=== PATIENT | female | born 1935 | race Caucasian/White ===

== ENCOUNTER 2016-10-18 19:23 | Emergency (ER) | payer MEDICARE ==
[2016-10-18 19:59] VITALS: BP 156/91
--- NOTE | 2016-10-18 19:59 | EDM.PDOC ---
ED HPI Trauma - General Chief Complaint: Upper Extremity Injury/Pain Stated Complaint: fall, left shoulder, left thigh pain Source: Reports: Patient - History of Present Illness INITIAL COMMENTS - FREE TEXT/NARRATIVE: patient slipped and fell on ice this afternoon landing on her left side. since then she has has severe posterior shoulder pain with movement. denies any other acute complaints. denies history of injury to her left shoulder. she took ibuprofen and ASA today with no relief. Occurred When: this afternoon Method of Injury: fall Severity: severe (with movement) Pain/Injury Location: Reports: upper extremity, left Consciousness: Reports: no loss of consciousness Associated Symptoms: Reports: no other symptoms Allergies/ADRs: Allergies No Known Allergies Allergy (Verified 10/18/16 19:36) Home Medications: Ambulatory Orders Fenofibrate [Fenofibrate] 160 mg PO DAILY 10/18/16 [Confirmed 10/18/16] Simvastatin [Simvastatin] 20 mg PO DAILY 10/18/16 [Confirmed 10/18/16] Review of Systems - Review of Systems Review Of Systems: ROS reveals no pertinent complaints other than HPI. Trauma Exam - Physical Exam Exam: See Below Exam Limited By: No limitations General Appearance: Reports: alert, WD/WN, no apparent distress Respiratory Exam: Reports: no respiratory distress, lungs clear Extremities: Reports: pain with movement (to posterior left shoulder, unable to abduct or rotate. ), tenderness (to posterior shoulder) Skin: Reports: Normal color, Warm/dry Course - Vital Signs Last Recorded V/S: Last Vital Signs Temp 35.8 C 10/18/16 19:25 Pulse 84 10/18/16 19:25 Resp 16 10/18/16 19:25 BP 156/91 H 10/18/16 19:25 Pulse Ox 93 L 10/18/16 19:25 - Orders/Labs/Meds Orders: Active Orders 24 hr Category Date Time Status Shoulder Comp Lt [CR] Stat Exams 10/18/16 19:49 Taken Ketorolac [Toradol] Med 10/18/16 20:45 Once 60 mg IM ONETIME ONE - Radiology Interpretation Free Text/Narrative:: shoulder x ray negative. Departure - Departure Time of Disposition: 21:00 Disposition: Home, Self-Care 01 Condition: good Clinical Impression: Sprain of shoulder Referrals: Cherelle Arzate DO [Primary Care Provider] - Forms: ED Department Discharge - Problem List & Annotations (1) Sprain of shoulder SNOMED Code(s): 7426807 Code(s): S43.409A - UNSP SPRAIN OF UNSPECIFIED SHOULDER JOINT, INIT ENCNTR Status: Acute Priority: Medium Current Visit: Yes Qualifiers: Encounter type: initial encounter - My Orders Last 24 Hours: My Active Orders 10/18/16 19:49 Shoulder Comp Lt [CR] Stat 10/18/16 20:45 Ketorolac [Toradol] 60 mg IM ONETIME ONE - Assessment/Plan Last 24 Hours: My Active Orders 10/18/16 19:49 Shoulder Comp Lt [CR] Stat 10/18/16 20:45 Ketorolac [Toradol] 60 mg IM ONETIME ONE Plan: ibuprofen 600mg TID for 3 days. Tramadol at bedtime as needed for pain. wear sling as needed. see primary provider if no improvement on Friday.
[2016-10-18] MEDS ORDERED: Ketorolac 60 MG/2 ML SDV IM ONE (20:45)
== END 2016-10-18 20:59 | disposition home or self-care (01) ==
LOC: VM.ED 19:23
DX: S43.402A Unspecified sprain of left shoulder joint, initial encounter (principal); W00.0XXA Fall on same level due to ice and snow, initial encounter
CPT/HCPCS: 73030; 96372; 99283; J1885

== ENCOUNTER 2023-05-02 12:20 | Inpatient (IN) | payer MEDICARE, OTHER ==
[2023-05-02] MEDS ORDERED: Meclizine 25 MG Tab PO PRN (15:17)
[2023-05-02] MEDS ORDERED: Menthol 10%/Methyl Salicylate 15% 85 GM Tube TOP PRN (15:17)
[2023-05-02] MEDS ORDERED: Naloxone 0.4 MG/ML SDV IM PRN (15:17)
[2023-05-02] MEDS ORDERED: Sodium Chloride 0.9% 10 ML Syringe FLUSH PRN (15:17)
[2023-05-02] MEDS ORDERED: ALOE VERA TOP PRN (15:17)
[2023-05-02] MEDS ORDERED: Non-Formulary Medication 1 Each (Cefazolin [Ancef] 2 GM/50 ML Bag) IV SCH (15:30)
[2023-05-02] MEDS ORDERED: Calcium Carbonate 750 MG Tab.Chew PO PRN (16:40)
[2023-05-02] MEDS ORDERED: oxyCODONE 5 MG Tab PO PRN (16:44)
[2023-05-02] MEDS: ceFAZolin 2 GM Vial IVPUSH SCH (17:46)
[2023-05-02] MEDS: Heparin Sodium 100 Units/ML 3 ML Syringe FLUSH SCH (17:47)
[2023-05-02] MEDS: Sodium Chloride 0.9% 10 ML Syringe FLUSH SCH (17:47)
[2023-05-02] MEDS: Potassium Chloride 10 MEQ Tab.ER PO SCH (17:50)
[2023-05-02] MEDS ORDERED: ceFAZolin 2 GM in Sodium Chloride 0.9% 100 ML IV SCH (18:00)
[2023-05-02] MEDS: Acetaminophen 325 MG Tab PO SCH (18:09)
[2023-05-02] MEDS: Rifampin 150 MG Cap PO SCH (21:58)
[2023-05-02] MEDS: Simvastatin 20 MG Tab PO SCH (21:58)
[2023-05-02] MEDS: Calcium Citrate/Vitamin D3 315 MG-250 Unit Tab PO SCH (21:59)
[2023-05-02] MEDS: Sennosides/Docusate Sodium 50-8.6 MG Tab PO SCH (21:59)
[2023-05-02] MEDS: Tamsulosin 0.4 MG Cap.ER PO SCH (21:59)
[2023-05-02] MEDS: Aspirin 81 MG Tab.EC PO SCH (21:59)
[2023-05-02] MEDS: Miconazole 2% Top Powder 45 GM Container TOP SCH (22:55)
[2023-05-03] MEDS: Acetaminophen 325 MG Tab PO SCH ×5 (01:23→22:45)
[2023-05-03] MEDS: ceFAZolin 2 GM Vial IVPUSH SCH ×3 (01:25→17:03)
[2023-05-03] MEDS: Sodium Chloride 0.9% 10 ML Syringe FLUSH SCH ×3 (01:25→17:03)
[2023-05-03] MEDS: Heparin Sodium 100 Units/ML 3 ML Syringe FLUSH SCH ×3 (01:25→17:11)
[2023-05-03] MEDS: Sodium Chloride 0.9% 10 ML Syringe FLUSH PRN ×6 (01:26→21:15)
[2023-05-03] MEDS: Omeprazole 20 MG Cap.CR PO SCH (06:44)
[2023-05-03] MEDS: hydrALAZINE 25 MG Tab PO PRN ×2 (06:59→22:33)
[2023-05-03 07:55] LABS: BASOPHILS PERCENT AUTO 0.6 % (0.2-1.2); EOSINOPHILS ABSOLUTE AUTO 0.1 x10^3/uL (0.0-0.5); EOSINOPHILS PERCENT AUTO 1.7 % (0.0-4.0); HEMATOCRIT 30.4 % (33.0-47.0); HEMOGLOBIN 10.1 g/dL (12.0-16.0); IMMATURE GRAN ABSOLUTE AUTO 0.04 x10^3/uL (0.00-0.07); LYMPHOCYTES ABSOLUTE AUTO 0.7 x10^3/uL (1.0-4.8); LYMPHOCYTES PERCENT AUTO 10.4 % (25.0-50.0); MEAN CORPUSCULAR HEMOGLOBIN 29.6 pg (26.0-32.0); MEAN CORPUSCULAR HGB CONC 33.2 g/dL (32.0-36.0); MEAN CORPUSCULAR VOLUME 89.1 fL (78.0-93.0); MONOCYTES ABSOLUTE AUTO 0.5 x10^3/uL (0.0-0.8); MONOCYTES PERCENT AUTO 7.8 % (2.0-11.0); NEUTROPHILS ABSOLUTE AUTO 5.1 x10^3/uL (1.8-7.7); NEUTROPHILS PERCENT AUTO 78.9 % (50.0-80.0); PLATELET COUNT,PLT 154 x10^3/uL (130-400); RED BLOOD CELL COUNT 3.41 x10^6/uL (4.00-5.50); WHITE BLOOD CELL COUNT,WBC 6.4 x10^3/uL (4.0-10.0)
[2023-05-03 08:06] LABS: CALCIUM 7.7 mg/dL (8.5-10.1); CREATININE 0.7 mg/dL (0.55-1.02); EST CRCL DRUG DOSING (CG) 40.67 mL/min; POTASSIUM,K 3.4 mmol/L (3.5-5.1)
[2023-05-03 08:09] LABS: ANION GAP 6.4 mmol/L (5-15)
[2023-05-03 08:22] LABS: MAGNESIUM 1.7 mg/dL (1.8-2.4)
[2023-05-03] MEDS: Rifampin 150 MG Cap PO SCH ×2 (08:45→22:14)
[2023-05-03] MEDS: Aspirin 81 MG Tab.EC PO SCH ×2 (08:46→22:14)
[2023-05-03] MEDS: Furosemide 20 MG Tab PO SCH (08:46)
[2023-05-03] MEDS: amLODIPine 10 MG Tab PO SCH (08:46)
[2023-05-03] MEDS: Fluconazole 100 MG Tab PO SCH (08:47)
[2023-05-03] MEDS: Potassium Chloride 10 MEQ Tab.ER PO SCH (08:47)
[2023-05-03] MEDS ORDERED: Ascorbic Acid 500 MG Tab PO SCH (09:00)
[2023-05-03] MEDS ORDERED: Cyanocobalamin (Vitamin B12) 250 MCG Tab PO SCH (09:00)
[2023-05-03] MEDS ORDERED: Vitamin B Complex Tab PO SCH (09:00)
[2023-05-03] MEDS ORDERED: Fish Oil/Omega-3 Fatty Acids 1 Gm Cap PO SCH (09:00)
[2023-05-03] MEDS ORDERED: Multivitamin Tab PO SCH (09:00)
[2023-05-03] MEDS ORDERED: Cholecalciferol (Vitamin D3) 25 MCG Tab PO SCH (09:00)
[2023-05-03] MEDS: Fenofibrate,Micronized 134 MG Cap PO SCH (09:22)
[2023-05-03] MEDS: Calcium Citrate/Vitamin D3 315 MG-250 Unit Tab PO SCH (09:22)
[2023-05-03] MEDS: Magnesium Oxide 400 MG Tab PO SCH (09:23)
[2023-05-03] MEDS: Heparin Sodium 100 Units/ML 3 ML Syringe FLUSH PRN ×2 (09:45→21:15)
[2023-05-03] MEDS: Polyethylene Glycol 3350 Powder 17 GM Packet PO SCH (10:12)
[2023-05-03] MEDS: [UNRECOGNIZED DRUG - OTHER] PO SCH (11:27)
[2023-05-03] MEDS: POTASSIUM GLUCONATE PO SCH (11:27)
[2023-05-03] MEDS: Miconazole 2% Top Powder 45 GM Container TOP SCH ×2 (11:32→22:45)
[2023-05-03] MEDS: Sennosides/Docusate Sodium 50-8.6 MG Tab PO SCH (13:12)
[2023-05-03] MEDS ORDERED: Ondansetron 4 MG/2 ML SDV IVPUSH PRN (15:54)
[2023-05-03] MEDS ORDERED: Magnesium Sulfate/Water 4 GM in Premix Bag 1 BAG IV ONE (16:05)
[2023-05-03] MEDS: Simvastatin 20 MG Tab PO SCH ×2 (22:14→22:45)
[2023-05-03] MEDS: Tamsulosin 0.4 MG Cap.ER PO SCH (22:14)
[2023-05-04] MEDS: Metoclopramide 10 MG/2 ML SDV IVPUSH SCH ×4 (00:07→17:02)
[2023-05-04] MEDS: Sodium Chloride 0.9% 10 ML Syringe FLUSH PRN ×9 (00:15→17:30)
[2023-05-04] MEDS: ceFAZolin 2 GM Vial IVPUSH SCH ×3 (02:10→17:19)
[2023-05-04] MEDS: Heparin Sodium 100 Units/ML 3 ML Syringe FLUSH SCH ×3 (02:11→17:32)
[2023-05-04] MEDS: Sodium Chloride 0.9% 10 ML Syringe FLUSH SCH ×3 (02:11→17:26)
[2023-05-04] MEDS: Acetaminophen 325 MG Tab PO SCH ×4 (02:13→18:39)
[2023-05-04] MEDS: Heparin Sodium 100 Units/ML 3 ML Syringe FLUSH PRN ×3 (06:59→17:12)
[2023-05-04] MEDS: Omeprazole 20 MG Cap.CR PO SCH (06:59)
[2023-05-04 08:11] LABS: BASOPHILS PERCENT AUTO 0.5 % (0.2-1.2); EOSINOPHILS ABSOLUTE AUTO 0.1 x10^3/uL (0.0-0.5); EOSINOPHILS PERCENT AUTO 1.3 % (0.0-4.0); HEMATOCRIT 33.3 % (33.0-47.0); IMMATURE GRAN ABSOLUTE AUTO 0.03 x10^3/uL (0.00-0.07); LYMPHOCYTES ABSOLUTE AUTO 0.7 x10^3/uL (1.0-4.8); LYMPHOCYTES PERCENT AUTO 10.8 % (25.0-50.0); MEAN CORPUSCULAR HEMOGLOBIN 29.5 pg (26.0-32.0); MEAN CORPUSCULAR VOLUME 89.3 fL (78.0-93.0); MONOCYTES ABSOLUTE AUTO 0.5 x10^3/uL (0.0-0.8); MONOCYTES PERCENT AUTO 7.7 % (2.0-11.0); NEUTROPHILS ABSOLUTE AUTO 4.9 x10^3/uL (1.8-7.7); NEUTROPHILS PERCENT AUTO 79.2 % (50.0-80.0); PLATELET COUNT,PLT 182 x10^3/uL (130-400); RED BLOOD CELL COUNT 3.73 x10^6/uL (4.00-5.50); WHITE BLOOD CELL COUNT,WBC 6.1 x10^3/uL (4.0-10.0)
[2023-05-04 08:32] LABS: A/G RATIO 0.52; ALBUMIN 1.6 g/dL (3.4-5.0); BILIRUBIN TOTAL 0.4 mg/dL (0.2-1.0); CALCIUM 7.8 mg/dL (8.5-10.1); CREATININE 0.9 mg/dL (0.55-1.02); EST CRCL DRUG DOSING (CG) 31.63 mL/min; MAGNESIUM 2.1 mg/dL (1.8-2.4); POTASSIUM,K 3.4 mmol/L (3.5-5.1); PROTEIN TOTAL,TP 4.7 g/dL (6.4-8.2)
[2023-05-04 08:33] LABS: ANION GAP 7.4 mmol/L (5-15)
[2023-05-04] MEDS: Fluconazole 100 MG Tab PO SCH (09:24)
[2023-05-04] MEDS: Rifampin 150 MG Cap PO SCH ×2 (09:24→21:39)
[2023-05-04] MEDS: Aspirin 81 MG Tab.EC PO SCH ×2 (10:25→21:39)
[2023-05-04] MEDS: Furosemide 20 MG Tab PO SCH (10:25)
[2023-05-04] MEDS: Miconazole 2% Top Powder 45 GM Container TOP SCH ×2 (10:25→21:40)
[2023-05-04] MEDS: amLODIPine 10 MG Tab PO SCH (10:25)
[2023-05-04] MEDS: Polyethylene Glycol 3350 Powder 17 GM Packet PO SCH (10:25)
[2023-05-04] MEDS: [UNRECOGNIZED DRUG - OTHER] PO SCH (10:29)
[2023-05-04] MEDS: POTASSIUM GLUCONATE PO SCH (10:29)
[2023-05-04] MEDS: Potassium Chloride 10 MEQ Tab.ER PO SCH (10:33)
[2023-05-04] MEDS: Magnesium Oxide 400 MG Tab PO SCH (11:28)
[2023-05-04] MEDS: Potassium Chloride 20 MEQ Tab.ER PO SCH (11:28)
[2023-05-04] MEDS: Fenofibrate,Micronized 134 MG Cap PO SCH (11:28)
[2023-05-04] MEDS: Tamsulosin 0.4 MG Cap.ER PO SCH (21:39)
[2023-05-04] MEDS: Simvastatin 20 MG Tab PO SCH (21:39)
[2023-05-05] MEDS: Metoclopramide 10 MG/2 ML SDV IVPUSH SCH ×2 (00:12→05:37)
[2023-05-05] MEDS: Heparin Sodium 100 Units/ML 3 ML Syringe FLUSH PRN ×2 (00:13→05:37)
[2023-05-05] MEDS: Sodium Chloride 0.9% 10 ML Syringe FLUSH PRN (00:13)
[2023-05-05] MEDS: Acetaminophen 325 MG Tab PO SCH ×4 (00:28→18:14)
[2023-05-05] MEDS: Heparin Sodium 100 Units/ML 3 ML Syringe FLUSH SCH ×3 (01:07→18:14)
[2023-05-05] MEDS: Sodium Chloride 0.9% 10 ML Syringe FLUSH SCH ×3 (01:07→18:14)
[2023-05-05] MEDS: ceFAZolin 2 GM Vial IVPUSH SCH ×3 (01:10→18:14)
[2023-05-05] MEDS ORDERED: Lidocaine 2% Viscous Solution 15 ML UD PO ONE ×2 (05:00→05:15)
[2023-05-05] MEDS ORDERED: Aluminum Hydroxide/Magnesium Hydroxide/Simethicone Susp 30 ML Cup PO ONE (05:30)
[2023-05-05] MEDS: Omeprazole 20 MG Cap.CR PO SCH (06:49)
[2023-05-05 06:59] LABS: BASOPHILS PERCENT AUTO 0.5 % (0.2-1.2); EOSINOPHILS ABSOLUTE AUTO 0.1 x10^3/uL (0.0-0.5); EOSINOPHILS PERCENT AUTO 1.6 % (0.0-4.0); HEMATOCRIT 31.7 % (33.0-47.0); HEMOGLOBIN 10.5 g/dL (12.0-16.0); IMMATURE GRAN ABSOLUTE AUTO 0.04 x10^3/uL (0.00-0.07); LYMPHOCYTES ABSOLUTE AUTO 0.5 x10^3/uL (1.0-4.8); LYMPHOCYTES PERCENT AUTO 8.3 % (25.0-50.0); MEAN CORPUSCULAR HEMOGLOBIN 29.6 pg (26.0-32.0); MEAN CORPUSCULAR HGB CONC 33.1 g/dL (32.0-36.0); MEAN CORPUSCULAR VOLUME 89.3 fL (78.0-93.0); MONOCYTES ABSOLUTE AUTO 0.6 x10^3/uL (0.0-0.8); MONOCYTES PERCENT AUTO 8.8 % (2.0-11.0); NEUTROPHILS PERCENT AUTO 80.2 % (50.0-80.0); PLATELET COUNT,PLT 162 x10^3/uL (130-400); RED BLOOD CELL COUNT 3.55 x10^6/uL (4.00-5.50)
[2023-05-05 07:06] LABS: WHITE BLOOD CELL COUNT,WBC 6.3 x10^3/uL (4.0-10.0)
[2023-05-05 07:17] LABS: C-REACTIVE PROTEIN 4.64 mg/dL (<=0.30); CREATININE 0.7 mg/dL (0.55-1.02); EST CRCL DRUG DOSING (CG) 40.67 mL/min
[2023-05-05] MEDS: Miconazole 2% Top Powder 45 GM Container TOP SCH ×2 (08:46→21:17)
[2023-05-05] MEDS ORDERED: Metoclopramide 10 MG Tab PO PRN (08:55)
[2023-05-05] MEDS: Fenofibrate,Micronized 134 MG Cap PO SCH (10:37)
[2023-05-05] MEDS: Fluconazole 100 MG Tab PO SCH (10:37)
[2023-05-05] MEDS: Potassium Chloride 20 MEQ Tab.ER PO SCH (10:38)
[2023-05-05] MEDS: Aspirin 81 MG Tab.EC PO SCH ×2 (10:38→21:16)
[2023-05-05] MEDS: Rifampin 150 MG Cap PO SCH ×2 (10:38→21:16)
[2023-05-05] MEDS: amLODIPine 10 MG Tab PO SCH (10:39)
[2023-05-05] MEDS: Magnesium Oxide 400 MG Tab PO SCH ×2 (10:39→21:16)
[2023-05-05] MEDS: Furosemide 20 MG Tab PO SCH (10:39)
[2023-05-05] MEDS: Polyethylene Glycol 3350 Powder 17 GM Packet PO SCH (10:39)
[2023-05-05] MEDS: [UNRECOGNIZED DRUG - OTHER] PO SCH (10:40)
[2023-05-05] MEDS: POTASSIUM GLUCONATE PO SCH (10:40)
[2023-05-05] MEDS: Simvastatin 20 MG Tab PO SCH (21:16)
[2023-05-05] MEDS: Tamsulosin 0.4 MG Cap.ER PO SCH (21:16)
[2023-05-06] MEDS: ceFAZolin 2 GM Vial IVPUSH SCH ×3 (01:18→17:59)
[2023-05-06] MEDS: Sodium Chloride 0.9% 10 ML Syringe FLUSH SCH ×3 (01:18→18:01)
[2023-05-06] MEDS: Heparin Sodium 100 Units/ML 3 ML Syringe FLUSH SCH ×3 (01:19→18:00)
[2023-05-06] MEDS: Acetaminophen 325 MG Tab PO SCH ×4 (01:19→18:01)
[2023-05-06] MEDS: Omeprazole 20 MG Cap.CR PO SCH (06:31)
[2023-05-06] MEDS: Miconazole 2% Top Powder 45 GM Container TOP SCH (09:26)
[2023-05-06] MEDS: Rifampin 150 MG Cap PO SCH ×2 (09:31→22:00)
[2023-05-06] MEDS: Aspirin 81 MG Tab.EC PO SCH ×2 (09:31→22:00)
[2023-05-06] MEDS: Fluconazole 100 MG Tab PO SCH (09:31)
[2023-05-06] MEDS: Fenofibrate,Micronized 134 MG Cap PO SCH (09:31)
[2023-05-06] MEDS: Potassium Chloride 20 MEQ Tab.ER PO SCH (09:31)
[2023-05-06] MEDS: amLODIPine 10 MG Tab PO SCH (09:31)
[2023-05-06] MEDS: Magnesium Oxide 400 MG Tab PO SCH ×2 (09:32→22:00)
[2023-05-06] MEDS: Polyethylene Glycol 3350 Powder 17 GM Packet PO SCH (09:32)
[2023-05-06] MEDS: Furosemide 20 MG Tab PO SCH (09:32)
[2023-05-06] MEDS: POTASSIUM GLUCONATE PO SCH (10:02)
[2023-05-06] MEDS: [UNRECOGNIZED DRUG - OTHER] PO SCH (10:02)
[2023-05-06] MEDS: Tamsulosin 0.4 MG Cap.ER PO SCH (22:00)
[2023-05-06] MEDS: Simvastatin 20 MG Tab PO SCH (22:00)
[2023-05-07] MEDS: Sodium Chloride 0.9% 10 ML Syringe FLUSH SCH ×3 (01:38→17:37)
[2023-05-07] MEDS: ceFAZolin 2 GM Vial IVPUSH SCH ×3 (01:39→17:36)
[2023-05-07] MEDS: Acetaminophen 325 MG Tab PO SCH ×3 (01:44→12:45)
[2023-05-07] MEDS: Heparin Sodium 100 Units/ML 3 ML Syringe FLUSH SCH ×3 (01:44→17:37)
[2023-05-07] MEDS: Miconazole 2% Top Powder 45 GM Container TOP SCH ×4 (02:13→20:33)
[2023-05-07] MEDS: Omeprazole 20 MG Cap.CR PO SCH (06:52)
[2023-05-07 06:58] LABS: BASOPHILS PERCENT AUTO 0.9 % (0.2-1.2); EOSINOPHILS ABSOLUTE AUTO 0.1 x10^3/uL (0.0-0.5); IMMATURE GRAN ABSOLUTE AUTO 0.04 x10^3/uL (0.00-0.07); LYMPHOCYTES ABSOLUTE AUTO 0.6 x10^3/uL (1.0-4.8); LYMPHOCYTES PERCENT AUTO 14.3 % (25.0-50.0); MEAN CORPUSCULAR HEMOGLOBIN 30.3 pg (26.0-32.0); MEAN CORPUSCULAR HGB CONC 33.3 g/dL (32.0-36.0); MEAN CORPUSCULAR VOLUME 90.9 fL (78.0-93.0); MONOCYTES ABSOLUTE AUTO 0.4 x10^3/uL (0.0-0.8); MONOCYTES PERCENT AUTO 9.6 % (2.0-11.0); NEUTROPHILS ABSOLUTE AUTO 3.2 x10^3/uL (1.8-7.7); NEUTROPHILS PERCENT AUTO 72.3 % (50.0-80.0); PLATELET COUNT,PLT 121 x10^3/uL (130-400); RED BLOOD CELL COUNT 2.97 x10^6/uL (4.00-5.50); WHITE BLOOD CELL COUNT,WBC 4.5 x10^3/uL (4.0-10.0)
[2023-05-07 07:17] LABS: ANION GAP 5.5 mmol/L (5-15); CALCIUM 7.5 mg/dL (8.5-10.1); CREATININE 0.7 mg/dL (0.55-1.02); EST CRCL DRUG DOSING (CG) 40.67 mL/min; POTASSIUM,K 4.5 mmol/L (3.5-5.1)
[2023-05-07] MEDS: Polyethylene Glycol 3350 Powder 17 GM Packet PO SCH (09:20)
[2023-05-07] MEDS: Aspirin 81 MG Tab.EC PO SCH ×2 (09:22→20:34)
[2023-05-07] MEDS: Fenofibrate,Micronized 134 MG Cap PO SCH (09:22)
[2023-05-07] MEDS: amLODIPine 10 MG Tab PO SCH (09:23)
[2023-05-07] MEDS: Furosemide 20 MG Tab PO SCH (09:23)
[2023-05-07] MEDS: Rifampin 150 MG Cap PO SCH ×2 (09:24→20:33)
[2023-05-07] MEDS: Fluconazole 100 MG Tab PO SCH (09:24)
[2023-05-07] MEDS: Magnesium Oxide 400 MG Tab PO SCH ×2 (09:24→20:34)
[2023-05-07] MEDS: Potassium Chloride 20 MEQ Tab.ER PO SCH (09:24)
[2023-05-07] MEDS: POTASSIUM GLUCONATE PO SCH (09:26)
[2023-05-07] MEDS: [UNRECOGNIZED DRUG - OTHER] PO SCH (09:26)
[2023-05-07] MEDS: Sennosides/Docusate Sodium 50-8.6 MG Tab PO PRN (17:35)
[2023-05-07] MEDS: Simvastatin 20 MG Tab PO SCH (20:34)
[2023-05-07] MEDS: Tamsulosin 0.4 MG Cap.ER PO SCH (20:34)
[2023-05-07] MEDS: Sodium Chloride 0.9% 10 ML Syringe FLUSH PRN ×2 (21:18→21:22)
[2023-05-07] MEDS: Heparin Sodium 100 Units/ML 3 ML Syringe FLUSH PRN (21:55)
[2023-05-08] MEDS: Sodium Chloride 0.9% 10 ML Syringe FLUSH SCH ×5 (01:04→17:51)
[2023-05-08] MEDS: ceFAZolin 2 GM Vial IVPUSH SCH ×3 (01:14→17:50)
[2023-05-08] MEDS: Heparin Sodium 100 Units/ML 3 ML Syringe FLUSH SCH ×3 (01:19→17:50)
[2023-05-08] MEDS: Heparin Sodium 100 Units/ML 3 ML Syringe FLUSH PRN ×4 (01:23→21:14)
[2023-05-08] MEDS: Sodium Chloride 0.9% 10 ML Syringe FLUSH PRN ×3 (06:28→21:10)
[2023-05-08 06:44] LABS: BASOPHILS PERCENT AUTO 0.7 % (0.2-1.2); EOSINOPHILS ABSOLUTE AUTO 0.1 x10^3/uL (0.0-0.5); HEMATOCRIT 27.5 % (33.0-47.0); HEMOGLOBIN 9.1 g/dL (12.0-16.0); IMMATURE GRAN ABSOLUTE AUTO 0.03 x10^3/uL (0.00-0.07); LYMPHOCYTES ABSOLUTE AUTO 0.7 x10^3/uL (1.0-4.8); LYMPHOCYTES PERCENT AUTO 14.9 % (25.0-50.0); MEAN CORPUSCULAR HGB CONC 33.1 g/dL (32.0-36.0); MEAN CORPUSCULAR VOLUME 90.8 fL (78.0-93.0); MONOCYTES ABSOLUTE AUTO 0.4 x10^3/uL (0.0-0.8); MONOCYTES PERCENT AUTO 9.7 % (2.0-11.0); NEUTROPHILS ABSOLUTE AUTO 3.2 x10^3/uL (1.8-7.7); PLATELET COUNT,PLT 141 x10^3/uL (130-400); RED BLOOD CELL COUNT 3.03 x10^6/uL (4.00-5.50); WHITE BLOOD CELL COUNT,WBC 4.4 x10^3/uL (4.0-10.0)
[2023-05-08] MEDS: Omeprazole 20 MG Cap.CR PO SCH (06:45)
[2023-05-08 07:04] LABS: ALBUMIN 1.4 g/dL (3.4-5.0); CALCIUM 7.4 mg/dL (8.5-10.1); CREATININE 0.6 mg/dL (0.55-1.02); EST CRCL DRUG DOSING (CG) 47.45 mL/min; PHOSPHORUS 2.9 mg/dL (2.6-4.7); POTASSIUM,K 4.4 mmol/L (3.5-5.1)
[2023-05-08] MEDS: Polyethylene Glycol 3350 Powder 17 GM Packet PO SCH (09:51)
[2023-05-08] MEDS: Magnesium Oxide 400 MG Tab PO SCH ×2 (09:54→21:06)
[2023-05-08] MEDS: Aspirin 81 MG Tab.EC PO SCH ×2 (09:54→21:07)
[2023-05-08] MEDS: Rifampin 150 MG Cap PO SCH ×2 (09:54→21:06)
[2023-05-08] MEDS: Miconazole 2% Top Powder 45 GM Container TOP SCH ×2 (09:55→21:07)
[2023-05-08] MEDS: Furosemide 20 MG Tab PO SCH (09:55)
[2023-05-08] MEDS: Fenofibrate,Micronized 134 MG Cap PO SCH (09:55)
[2023-05-08] MEDS: amLODIPine 10 MG Tab PO SCH (09:55)
[2023-05-08] MEDS: Potassium Chloride 20 MEQ Tab.ER PO SCH (09:55)
[2023-05-08] MEDS: Tamsulosin 0.4 MG Cap.ER PO SCH (21:07)
[2023-05-08] MEDS: Simvastatin 20 MG Tab PO SCH (21:07)
[2023-05-09] MEDS: Sodium Chloride 0.9% 10 ML Syringe FLUSH SCH ×3 (01:05→18:10)
[2023-05-09] MEDS: ceFAZolin 2 GM Vial IVPUSH SCH ×3 (01:09→18:07)
[2023-05-09] MEDS: Sodium Chloride 0.9% 10 ML Syringe FLUSH PRN ×5 (01:13→22:10)
[2023-05-09] MEDS: Heparin Sodium 100 Units/ML 3 ML Syringe FLUSH PRN ×3 (01:17→22:14)
[2023-05-09] MEDS: Heparin Sodium 100 Units/ML 3 ML Syringe FLUSH SCH ×4 (01:17→18:16)
[2023-05-09] MEDS: Omeprazole 20 MG Cap.CR PO SCH (06:13)
[2023-05-09] MEDS: Rifampin 150 MG Cap PO SCH ×2 (08:17→22:08)
[2023-05-09] MEDS: Aspirin 81 MG Tab.EC PO SCH ×2 (08:17→22:08)
[2023-05-09] MEDS: Polyethylene Glycol 3350 Powder 17 GM Packet PO SCH (08:18)
[2023-05-09] MEDS: Furosemide 20 MG Tab PO SCH (08:18)
[2023-05-09] MEDS: amLODIPine 10 MG Tab PO SCH (08:18)
[2023-05-09] MEDS: Fenofibrate,Micronized 134 MG Cap PO SCH (09:37)
[2023-05-09] MEDS: Potassium Chloride 20 MEQ Tab.ER PO SCH (09:37)
[2023-05-09] MEDS: Miconazole 2% Top Powder 45 GM Container TOP SCH ×2 (09:37→22:08)
[2023-05-09] MEDS: Magnesium Oxide 400 MG Tab PO SCH ×2 (09:37→22:08)
[2023-05-09] MEDS: Simvastatin 20 MG Tab PO SCH (22:08)
[2023-05-10] MEDS: Sodium Chloride 0.9% 10 ML Syringe FLUSH SCH ×3 (01:18→18:39)
[2023-05-10] MEDS: ceFAZolin 2 GM Vial IVPUSH SCH ×3 (01:22→18:36)
[2023-05-10] MEDS: Sodium Chloride 0.9% 10 ML Syringe FLUSH PRN ×4 (01:26→18:43)
[2023-05-10] MEDS: Heparin Sodium 100 Units/ML 3 ML Syringe FLUSH SCH ×3 (01:30→18:37)
[2023-05-10] MEDS: Heparin Sodium 100 Units/ML 3 ML Syringe FLUSH PRN (05:40)
[2023-05-10] MEDS: Omeprazole 20 MG Cap.CR PO SCH (06:00)
[2023-05-10] MEDS: Rifampin 150 MG Cap PO SCH ×2 (08:38→22:20)
[2023-05-10] MEDS: amLODIPine 10 MG Tab PO SCH (08:38)
[2023-05-10] MEDS: Furosemide 20 MG Tab PO SCH (08:38)
[2023-05-10] MEDS: Aspirin 81 MG Tab.EC PO SCH ×2 (08:38→22:21)
[2023-05-10] MEDS: Polyethylene Glycol 3350 Powder 17 GM Packet PO SCH (08:39)
[2023-05-10] MEDS: Miconazole 2% Top Powder 45 GM Container TOP SCH ×2 (08:39→22:21)
[2023-05-10] MEDS: Potassium Chloride 20 MEQ Tab.ER PO SCH (09:49)
[2023-05-10] MEDS: Magnesium Oxide 400 MG Tab PO SCH ×2 (09:49→22:20)
[2023-05-10] MEDS: Fenofibrate,Micronized 134 MG Cap PO SCH (09:49)
[2023-05-10] MEDS: Simvastatin 20 MG Tab PO SCH (22:21)
[2023-05-11] MEDS: Sodium Chloride 0.9% 10 ML Syringe FLUSH PRN ×5 (01:13→17:26)
[2023-05-11] MEDS: Heparin Sodium 100 Units/ML 3 ML Syringe FLUSH PRN ×2 (01:17→17:25)
[2023-05-11] MEDS: Sodium Chloride 0.9% 10 ML Syringe FLUSH SCH ×3 (01:21→17:31)
[2023-05-11] MEDS: ceFAZolin 2 GM Vial IVPUSH SCH ×3 (01:25→17:20)
[2023-05-11] MEDS: Heparin Sodium 100 Units/ML 3 ML Syringe FLUSH SCH ×3 (01:32→17:32)
[2023-05-11] MEDS: Omeprazole 20 MG Cap.CR PO SCH (06:04)
[2023-05-11] MEDS: Rifampin 150 MG Cap PO SCH ×2 (08:21→20:38)
[2023-05-11] MEDS: amLODIPine 10 MG Tab PO SCH (08:22)
[2023-05-11] MEDS: Polyethylene Glycol 3350 Powder 17 GM Packet PO SCH (08:22)
[2023-05-11] MEDS: Miconazole 2% Top Powder 45 GM Container TOP SCH ×2 (08:22→20:44)
[2023-05-11] MEDS: Aspirin 81 MG Tab.EC PO SCH ×2 (08:22→20:38)
[2023-05-11] MEDS: Furosemide 20 MG Tab PO SCH (08:22)
[2023-05-11] MEDS: Potassium Chloride 20 MEQ Tab.ER PO SCH (09:34)
[2023-05-11] MEDS: Fenofibrate,Micronized 134 MG Cap PO SCH (09:34)
[2023-05-11] MEDS: Magnesium Oxide 400 MG Tab PO SCH ×2 (09:34→20:38)
[2023-05-11] MEDS: Simvastatin 20 MG Tab PO SCH (20:38)
[2023-05-12] MEDS: Sodium Chloride 0.9% 10 ML Syringe FLUSH PRN ×3 (00:11→08:02)
[2023-05-12] MEDS: Heparin Sodium 100 Units/ML 3 ML Syringe FLUSH PRN ×2 (00:15→08:06)
[2023-05-12] MEDS: Sodium Chloride 0.9% 10 ML Syringe FLUSH SCH ×4 (01:34→17:22)
[2023-05-12] MEDS: ceFAZolin 2 GM Vial IVPUSH SCH ×3 (01:38→17:16)
[2023-05-12] MEDS: Heparin Sodium 100 Units/ML 3 ML Syringe FLUSH SCH ×4 (01:46→17:24)
[2023-05-12] MEDS: Omeprazole 20 MG Cap.CR PO SCH (06:07)
[2023-05-12] MEDS: Sennosides/Docusate Sodium 50-8.6 MG Tab PO PRN (06:11)
[2023-05-12 08:20] LABS: BASOPHILS PERCENT AUTO 0.6 % (0.2-1.2); EOSINOPHILS ABSOLUTE AUTO 0.1 x10^3/uL (0.0-0.5); EOSINOPHILS PERCENT AUTO 1.8 % (0.0-4.0); HEMATOCRIT 29.6 % (33.0-47.0); HEMOGLOBIN 9.9 g/dL (12.0-16.0); IMMATURE GRAN ABSOLUTE AUTO 0.11 x10^3/uL (0.00-0.07); LYMPHOCYTES ABSOLUTE AUTO 0.9 x10^3/uL (1.0-4.8); LYMPHOCYTES PERCENT AUTO 13.4 % (25.0-50.0); MEAN CORPUSCULAR HEMOGLOBIN 30.2 pg (26.0-32.0); MEAN CORPUSCULAR HGB CONC 33.4 g/dL (32.0-36.0); MEAN CORPUSCULAR VOLUME 90.2 fL (78.0-93.0); MONOCYTES ABSOLUTE AUTO 0.7 x10^3/uL (0.0-0.8); MONOCYTES PERCENT AUTO 10.2 % (2.0-11.0); NEUTROPHILS ABSOLUTE AUTO 4.8 x10^3/uL (1.8-7.7); NEUTROPHILS PERCENT AUTO 72.3 % (50.0-80.0); PLATELET COUNT,PLT 308 x10^3/uL (130-400); RED BLOOD CELL COUNT 3.28 x10^6/uL (4.00-5.50); WHITE BLOOD CELL COUNT,WBC 6.7 x10^3/uL (4.0-10.0)
[2023-05-12] MEDS: Potassium Chloride 20 MEQ Tab.ER PO SCH (08:28)
[2023-05-12] MEDS: Magnesium Oxide 400 MG Tab PO SCH ×2 (08:28→21:03)
[2023-05-12 08:29] LABS: ALBUMIN 1.8 g/dL (3.4-5.0); CALCIUM 7.9 mg/dL (8.5-10.1); CREATININE 0.7 mg/dL (0.55-1.02); EST CRCL DRUG DOSING (CG) 40.67 mL/min; PHOSPHORUS 2.7 mg/dL (2.6-4.7); POTASSIUM,K 4.2 mmol/L (3.5-5.1)
[2023-05-12] MEDS: Aspirin 81 MG Tab.EC PO SCH ×2 (08:29→21:04)
[2023-05-12] MEDS: Furosemide 20 MG Tab PO SCH (08:30)
[2023-05-12] MEDS: Fenofibrate,Micronized 134 MG Cap PO SCH (08:30)
[2023-05-12] MEDS: amLODIPine 10 MG Tab PO SCH (08:31)
[2023-05-12] MEDS: Polyethylene Glycol 3350 Powder 17 GM Packet PO SCH (08:32)
[2023-05-12] MEDS: Rifampin 150 MG Cap PO SCH ×2 (08:33→21:03)
[2023-05-12] MEDS ORDERED: Miconazole 2% Top Powder 45 GM Container TOP PRN (08:34)
[2023-05-12 08:53] LABS: C-REACTIVE PROTEIN 3.15 mg/dL (<=0.30)
[2023-05-12] MEDS: Tamsulosin 0.4 MG Cap.ER PO SCH (21:03)
[2023-05-12] MEDS: Simvastatin 20 MG Tab PO SCH (21:03)
[2023-05-13] MEDS: Sodium Chloride 0.9% 10 ML Syringe FLUSH SCH ×3 (01:55→19:36)
[2023-05-13] MEDS: ceFAZolin 2 GM Vial IVPUSH SCH ×3 (01:59→19:39)
[2023-05-13] MEDS: Sodium Chloride 0.9% 10 ML Syringe FLUSH PRN ×2 (02:03→05:43)
[2023-05-13] MEDS: Heparin Sodium 100 Units/ML 3 ML Syringe FLUSH SCH ×5 (02:07→19:42)
[2023-05-13] MEDS: Omeprazole 20 MG Cap.CR PO SCH (06:00)
[2023-05-13] MEDS: Potassium Chloride 20 MEQ Tab.ER PO SCH ×2 (07:13→08:35)
[2023-05-13] MEDS: Aspirin 81 MG Tab.EC PO SCH ×3 (07:13→20:45)
[2023-05-13] MEDS: Magnesium Oxide 400 MG Tab PO SCH ×3 (07:13→20:44)
[2023-05-13] MEDS: Fenofibrate,Micronized 134 MG Cap PO SCH ×2 (07:13→08:34)
[2023-05-13] MEDS: amLODIPine 10 MG Tab PO SCH ×2 (07:14→08:35)
[2023-05-13] MEDS: Rifampin 150 MG Cap PO SCH ×3 (07:14→20:44)
[2023-05-13] MEDS: Polyethylene Glycol 3350 Powder 17 GM Packet PO SCH (08:35)
[2023-05-13] MEDS: Furosemide 20 MG Tab PO SCH (14:01)
[2023-05-13] MEDS: Simvastatin 20 MG Tab PO SCH (20:44)
[2023-05-13] MEDS: Tamsulosin 0.4 MG Cap.ER PO SCH (20:44)
[2023-05-14] MEDS: Sodium Chloride 0.9% 10 ML Syringe FLUSH SCH ×3 (01:22→18:22)
[2023-05-14] MEDS: ceFAZolin 2 GM Vial IVPUSH SCH ×3 (01:26→18:22)
[2023-05-14] MEDS: Sodium Chloride 0.9% 10 ML Syringe FLUSH PRN ×2 (01:30→05:54)
[2023-05-14] MEDS: Heparin Sodium 100 Units/ML 3 ML Syringe FLUSH SCH ×5 (01:34→18:33)
[2023-05-14] MEDS: Heparin Sodium 100 Units/ML 3 ML Syringe FLUSH PRN (05:58)
[2023-05-14] MEDS: Omeprazole 20 MG Cap.CR PO SCH (06:04)
[2023-05-14] MEDS: Aspirin 81 MG Tab.EC PO SCH ×2 (08:21→20:12)
[2023-05-14] MEDS: Magnesium Oxide 400 MG Tab PO SCH ×2 (08:21→20:12)
[2023-05-14] MEDS: Furosemide 20 MG Tab PO SCH (08:22)
[2023-05-14] MEDS: Fenofibrate,Micronized 134 MG Cap PO SCH (08:22)
[2023-05-14] MEDS: amLODIPine 10 MG Tab PO SCH (08:22)
[2023-05-14] MEDS: Potassium Chloride 20 MEQ Tab.ER PO SCH (08:22)
[2023-05-14] MEDS: Rifampin 150 MG Cap PO SCH ×2 (08:23→20:19)
[2023-05-14] MEDS: Polyethylene Glycol 3350 Powder 17 GM Packet PO SCH (08:23)
[2023-05-14] MEDS: Tamsulosin 0.4 MG Cap.ER PO SCH (20:13)
[2023-05-14] MEDS: Simvastatin 20 MG Tab PO SCH (20:13)
[2023-05-14] MEDS: Acetaminophen 325 MG Tab PO PRN (20:16)
[2023-05-15] MEDS: Sodium Chloride 0.9% 10 ML Syringe FLUSH SCH ×3 (01:00→18:20)
[2023-05-15] MEDS: ceFAZolin 2 GM Vial IVPUSH SCH ×3 (01:01→18:09)
[2023-05-15] MEDS: Heparin Sodium 100 Units/ML 3 ML Syringe FLUSH SCH ×5 (01:06→18:16)
[2023-05-15] MEDS: Omeprazole 20 MG Cap.CR PO SCH (06:19)
[2023-05-15] MEDS: Sodium Chloride 0.9% 10 ML Syringe FLUSH PRN (06:20)
[2023-05-15] MEDS: Fenofibrate,Micronized 134 MG Cap PO SCH (08:00)
[2023-05-15] MEDS: amLODIPine 10 MG Tab PO SCH (08:02)
[2023-05-15] MEDS: Aspirin 81 MG Tab.EC PO SCH ×2 (08:03→21:44)
[2023-05-15] MEDS: Rifampin 150 MG Cap PO SCH ×2 (08:06→21:43)
[2023-05-15] MEDS: Furosemide 20 MG Tab PO SCH (08:07)
[2023-05-15] MEDS: Magnesium Oxide 400 MG Tab PO SCH ×2 (08:08→21:44)
[2023-05-15] MEDS: Potassium Chloride 20 MEQ Tab.ER PO SCH (08:08)
[2023-05-15] MEDS: Polyethylene Glycol 3350 Powder 17 GM Packet PO SCH (08:09)
[2023-05-15] MEDS: Tamsulosin 0.4 MG Cap.ER PO SCH (21:43)
[2023-05-15] MEDS: Simvastatin 20 MG Tab PO SCH (21:44)
[2023-05-16] MEDS: Sodium Chloride 0.9% 10 ML Syringe FLUSH SCH ×3 (02:00→17:25)
[2023-05-16] MEDS: ceFAZolin 2 GM Vial IVPUSH SCH ×3 (02:00→17:24)
[2023-05-16] MEDS: Heparin Sodium 100 Units/ML 3 ML Syringe FLUSH SCH ×5 (02:05→17:24)
[2023-05-16] MEDS: Omeprazole 20 MG Cap.CR PO SCH (06:21)
[2023-05-16] MEDS: Sodium Chloride 0.9% 10 ML Syringe FLUSH PRN (06:22)
[2023-05-16] MEDS: Potassium Chloride 20 MEQ Tab.ER PO SCH (09:12)
[2023-05-16] MEDS: Fenofibrate,Micronized 134 MG Cap PO SCH (09:12)
[2023-05-16] MEDS: Rifampin 150 MG Cap PO SCH ×2 (09:12→20:33)
[2023-05-16] MEDS: Magnesium Oxide 400 MG Tab PO SCH ×2 (09:12→20:34)
[2023-05-16] MEDS: Furosemide 20 MG Tab PO SCH (09:12)
[2023-05-16] MEDS: Aspirin 81 MG Tab.EC PO SCH ×2 (09:12→20:34)
[2023-05-16] MEDS: amLODIPine 10 MG Tab PO SCH (09:15)
[2023-05-16] MEDS: Polyethylene Glycol 3350 Powder 17 GM Packet PO SCH (09:15)
[2023-05-16] MEDS: Tamsulosin 0.4 MG Cap.ER PO SCH (20:34)
[2023-05-16] MEDS: Simvastatin 20 MG Tab PO SCH (20:34)
[2023-05-17] MEDS: Sodium Chloride 0.9% 10 ML Syringe FLUSH SCH ×3 (02:12→17:50)
[2023-05-17] MEDS: ceFAZolin 2 GM Vial IVPUSH SCH ×3 (02:12→17:50)
[2023-05-17] MEDS: Heparin Sodium 100 Units/ML 3 ML Syringe FLUSH SCH ×5 (02:19→17:51)
[2023-05-17] MEDS: Omeprazole 20 MG Cap.CR PO SCH (06:16)
[2023-05-17] MEDS: Sodium Chloride 0.9% 10 ML Syringe FLUSH PRN (06:17)
[2023-05-17] MEDS: Fenofibrate,Micronized 134 MG Cap PO SCH (09:39)
[2023-05-17] MEDS: Potassium Chloride 20 MEQ Tab.ER PO SCH (09:39)
[2023-05-17] MEDS: Aspirin 81 MG Tab.EC PO SCH ×2 (09:39→21:03)
[2023-05-17] MEDS: Rifampin 150 MG Cap PO SCH ×2 (09:39→21:02)
[2023-05-17] MEDS: Magnesium Oxide 400 MG Tab PO SCH ×2 (09:40→21:02)
[2023-05-17] MEDS: Furosemide 20 MG Tab PO SCH (09:40)
[2023-05-17] MEDS: Polyethylene Glycol 3350 Powder 17 GM Packet PO SCH (09:41)
[2023-05-17] MEDS: amLODIPine 10 MG Tab PO SCH (09:42)
[2023-05-17] MEDS: Tamsulosin 0.4 MG Cap.ER PO SCH (21:02)
[2023-05-17] MEDS: Simvastatin 20 MG Tab PO SCH (21:03)
[2023-05-18] MEDS: Sodium Chloride 0.9% 10 ML Syringe FLUSH SCH ×3 (02:14→17:47)
[2023-05-18] MEDS: ceFAZolin 2 GM Vial IVPUSH SCH ×3 (02:14→17:47)
[2023-05-18] MEDS: Heparin Sodium 100 Units/ML 3 ML Syringe FLUSH SCH ×5 (02:21→17:47)
[2023-05-18] MEDS: Sodium Chloride 0.9% 10 ML Syringe FLUSH PRN (05:36)
[2023-05-18] MEDS: Omeprazole 20 MG Cap.CR PO SCH ×2 (05:43→06:59)
[2023-05-18] MEDS: amLODIPine 10 MG Tab PO SCH (08:41)
[2023-05-18] MEDS: Magnesium Oxide 400 MG Tab PO SCH ×2 (08:41→22:00)
[2023-05-18] MEDS: Aspirin 81 MG Tab.EC PO SCH ×2 (08:41→22:00)
[2023-05-18] MEDS: Rifampin 150 MG Cap PO SCH ×2 (08:42→22:00)
[2023-05-18] MEDS: Polyethylene Glycol 3350 Powder 17 GM Packet PO SCH (08:42)
[2023-05-18] MEDS: Potassium Chloride 20 MEQ Tab.ER PO SCH (08:43)
[2023-05-18] MEDS: Furosemide 20 MG Tab PO SCH (08:46)
[2023-05-18] MEDS: Fenofibrate,Micronized 134 MG Cap PO SCH (08:46)
[2023-05-18] MEDS: Simvastatin 20 MG Tab PO SCH (22:00)
[2023-05-18] MEDS: Tamsulosin 0.4 MG Cap.ER PO SCH (22:00)
[2023-05-19] MEDS: Sodium Chloride 0.9% 10 ML Syringe FLUSH SCH ×3 (01:28→17:46)
[2023-05-19] MEDS: ceFAZolin 2 GM Vial IVPUSH SCH ×3 (01:28→17:45)
[2023-05-19] MEDS: Heparin Sodium 100 Units/ML 3 ML Syringe FLUSH SCH ×5 (01:35→17:46)
[2023-05-19] MEDS: Sodium Chloride 0.9% 10 ML Syringe FLUSH PRN (05:42)
[2023-05-19] MEDS: Omeprazole 20 MG Cap.CR PO SCH ×2 (05:45→06:46)
[2023-05-19 07:05] LABS: BASOPHILS PERCENT AUTO 0.6 % (0.2-1.2); EOSINOPHILS ABSOLUTE AUTO 0.1 x10^3/uL (0.0-0.5); EOSINOPHILS PERCENT AUTO 1.3 % (0.0-4.0); HEMOGLOBIN 8.5 g/dL (12.0-16.0); IMMATURE GRAN ABSOLUTE AUTO 0.07 x10^3/uL (0.00-0.07); LYMPHOCYTES ABSOLUTE AUTO 1.2 x10^3/uL (1.0-4.8); LYMPHOCYTES PERCENT AUTO 18.8 % (25.0-50.0); MEAN CORPUSCULAR HGB CONC 32.7 g/dL (32.0-36.0); MEAN CORPUSCULAR VOLUME 91.9 fL (78.0-93.0); MONOCYTES ABSOLUTE AUTO 0.9 x10^3/uL (0.0-0.8); MONOCYTES PERCENT AUTO 13.5 % (2.0-11.0); NEUTROPHILS ABSOLUTE AUTO 4.1 x10^3/uL (1.8-7.7); NEUTROPHILS PERCENT AUTO 64.7 % (50.0-80.0); PLATELET COUNT,PLT 247 x10^3/uL (130-400); RED BLOOD CELL COUNT 2.83 x10^6/uL (4.00-5.50); WHITE BLOOD CELL COUNT,WBC 6.4 x10^3/uL (4.0-10.0)
[2023-05-19 07:30] LABS: CALCIUM 8.3 mg/dL (8.5-10.1); CREATININE 0.7 mg/dL (0.55-1.02); EST CRCL DRUG DOSING (CG) 39.78 mL/min; PHOSPHORUS 4.3 mg/dL (2.6-4.7); POTASSIUM,K 4.7 mmol/L (3.5-5.1)
[2023-05-19 07:33] LABS: C-REACTIVE PROTEIN 2.04 mg/dL (<=0.30)
[2023-05-19] MEDS: Fenofibrate,Micronized 134 MG Cap PO SCH (09:20)
[2023-05-19] MEDS: Potassium Chloride 20 MEQ Tab.ER PO SCH (09:20)
[2023-05-19] MEDS: Magnesium Oxide 400 MG Tab PO SCH ×2 (09:20→21:57)
[2023-05-19] MEDS: Aspirin 81 MG Tab.EC PO SCH ×2 (09:20→21:58)
[2023-05-19] MEDS: Furosemide 20 MG Tab PO SCH (09:20)
[2023-05-19] MEDS: Polyethylene Glycol 3350 Powder 17 GM Packet PO SCH (09:21)
[2023-05-19] MEDS: amLODIPine 10 MG Tab PO SCH (09:22)
[2023-05-19] MEDS: Rifampin 150 MG Cap PO SCH ×2 (09:24→21:57)
[2023-05-19] MEDS: Simvastatin 20 MG Tab PO SCH (21:58)
[2023-05-19] MEDS: Tamsulosin 0.4 MG Cap.ER PO SCH (21:58)
[2023-05-20] MEDS: Sodium Chloride 0.9% 10 ML Syringe FLUSH SCH ×3 (01:54→18:06)
[2023-05-20] MEDS: ceFAZolin 2 GM Vial IVPUSH SCH ×3 (01:55→18:05)
[2023-05-20] MEDS: Heparin Sodium 100 Units/ML 3 ML Syringe FLUSH SCH ×5 (01:59→18:07)
[2023-05-20] MEDS: Sodium Chloride 0.9% 10 ML Syringe FLUSH PRN ×2 (06:08→18:06)
[2023-05-20] MEDS: Omeprazole 20 MG Cap.CR PO SCH (06:09)
[2023-05-20] MEDS: Rifampin 150 MG Cap PO SCH ×2 (09:55→20:30)
[2023-05-20] MEDS: Aspirin 81 MG Tab.EC PO SCH ×2 (09:56→20:30)
[2023-05-20] MEDS: amLODIPine 10 MG Tab PO SCH (09:56)
[2023-05-20] MEDS: Furosemide 20 MG Tab PO SCH (09:56)
[2023-05-20] MEDS: Fenofibrate,Micronized 134 MG Cap PO SCH (09:56)
[2023-05-20] MEDS: Magnesium Oxide 400 MG Tab PO SCH ×2 (09:56→20:31)
[2023-05-20] MEDS: Potassium Chloride 20 MEQ Tab.ER PO SCH (09:56)
[2023-05-20] MEDS: Polyethylene Glycol 3350 Powder 17 GM Packet PO SCH (10:29)
[2023-05-20] MEDS: Heparin Sodium 100 Units/ML 3 ML Syringe FLUSH PRN (18:05)
[2023-05-20] MEDS: Tamsulosin 0.4 MG Cap.ER PO SCH (20:31)
[2023-05-20] MEDS: Simvastatin 20 MG Tab PO SCH (20:31)
[2023-05-21] MEDS: ceFAZolin 2 GM Vial IVPUSH SCH ×3 (01:38→18:03)
[2023-05-21] MEDS: Sodium Chloride 0.9% 10 ML Syringe FLUSH SCH ×3 (01:38→18:03)
[2023-05-21] MEDS: Heparin Sodium 100 Units/ML 3 ML Syringe FLUSH SCH ×5 (01:45→18:08)
[2023-05-21] MEDS: Omeprazole 20 MG Cap.CR PO SCH (06:24)
[2023-05-21] MEDS: Sodium Chloride 0.9% 10 ML Syringe FLUSH PRN (06:25)
[2023-05-21] MEDS: Rifampin 150 MG Cap PO SCH ×2 (08:48→20:40)
[2023-05-21] MEDS: amLODIPine 10 MG Tab PO SCH (08:49)
[2023-05-21] MEDS: Potassium Chloride 20 MEQ Tab.ER PO SCH (08:49)
[2023-05-21] MEDS: Aspirin 81 MG Tab.EC PO SCH ×2 (08:49→20:40)
[2023-05-21] MEDS: Magnesium Oxide 400 MG Tab PO SCH ×2 (08:49→20:40)
[2023-05-21] MEDS: Furosemide 20 MG Tab PO SCH (08:49)
[2023-05-21] MEDS: Fenofibrate,Micronized 134 MG Cap PO SCH (08:49)
[2023-05-21] MEDS: Polyethylene Glycol 3350 Powder 17 GM Packet PO SCH (08:51)
[2023-05-21] MEDS: Simvastatin 20 MG Tab PO SCH (20:40)
[2023-05-21] MEDS: Tamsulosin 0.4 MG Cap.ER PO SCH (20:40)
[2023-05-22] MEDS: Sodium Chloride 0.9% 10 ML Syringe FLUSH SCH ×3 (01:02→18:00)
[2023-05-22] MEDS: ceFAZolin 2 GM Vial IVPUSH SCH ×3 (01:06→18:03)
[2023-05-22] MEDS: Sodium Chloride 0.9% 10 ML Syringe FLUSH PRN ×2 (01:10→05:51)
[2023-05-22] MEDS: Heparin Sodium 100 Units/ML 3 ML Syringe FLUSH SCH ×5 (01:14→18:10)
[2023-05-22] MEDS: Heparin Sodium 100 Units/ML 3 ML Syringe FLUSH PRN (01:14)
[2023-05-22] MEDS: Omeprazole 20 MG Cap.CR PO SCH (06:05)
[2023-05-22] MEDS: Furosemide 20 MG Tab PO SCH (08:38)
[2023-05-22] MEDS: Potassium Chloride 20 MEQ Tab.ER PO SCH (08:38)
[2023-05-22] MEDS: Fenofibrate,Micronized 134 MG Cap PO SCH (08:39)
[2023-05-22] MEDS: Polyethylene Glycol 3350 Powder 17 GM Packet PO SCH (09:05)
[2023-05-22] MEDS: Rifampin 150 MG Cap PO SCH ×2 (09:08→20:42)
[2023-05-22] MEDS: Magnesium Oxide 400 MG Tab PO SCH ×2 (09:09→20:43)
[2023-05-22] MEDS: amLODIPine 10 MG Tab PO SCH (09:09)
[2023-05-22] MEDS: Aspirin 81 MG Tab.EC PO SCH ×2 (09:10→20:43)
[2023-05-22] MEDS: Simvastatin 20 MG Tab PO SCH (20:43)
[2023-05-22] MEDS: Tamsulosin 0.4 MG Cap.ER PO SCH (20:43)
[2023-05-23] MEDS: Sodium Chloride 0.9% 10 ML Syringe FLUSH SCH ×3 (01:02→17:30)
[2023-05-23] MEDS: ceFAZolin 2 GM Vial IVPUSH SCH ×3 (01:06→17:26)
[2023-05-23] MEDS: Sodium Chloride 0.9% 10 ML Syringe FLUSH PRN ×4 (01:10→17:37)
[2023-05-23] MEDS: Heparin Sodium 100 Units/ML 3 ML Syringe FLUSH SCH ×5 (01:14→17:39)
[2023-05-23] MEDS: Omeprazole 20 MG Cap.CR PO SCH (06:00)
[2023-05-23] MEDS: amLODIPine 10 MG Tab PO SCH (09:22)
[2023-05-23] MEDS: Rifampin 150 MG Cap PO SCH ×2 (09:22→20:46)
[2023-05-23] MEDS: Furosemide 20 MG Tab PO SCH (09:22)
[2023-05-23] MEDS: Fenofibrate,Micronized 134 MG Cap PO SCH (09:22)
[2023-05-23] MEDS: Potassium Chloride 20 MEQ Tab.ER PO SCH (09:22)
[2023-05-23] MEDS: Aspirin 81 MG Tab.EC PO SCH ×2 (09:22→20:46)
[2023-05-23] MEDS: Polyethylene Glycol 3350 Powder 17 GM Packet PO SCH (09:23)
[2023-05-23] MEDS: Magnesium Oxide 400 MG Tab PO SCH ×2 (09:23→20:46)
[2023-05-23] MEDS ORDERED: [UNRECOGNIZED DRUG - OTHER] EYEBOTH PRN (13:32)
[2023-05-23] MEDS: Tamsulosin 0.4 MG Cap.ER PO SCH (20:46)
[2023-05-23] MEDS: Simvastatin 20 MG Tab PO SCH (20:46)
[2023-05-23] MEDS: [UNRECOGNIZED DRUG - OTHER] EYEBOTH PRN (21:19)
[2023-05-24] MEDS: Sodium Chloride 0.9% 10 ML Syringe FLUSH SCH ×3 (02:14→17:20)
[2023-05-24] MEDS: ceFAZolin 2 GM Vial IVPUSH SCH ×3 (02:18→17:16)
[2023-05-24] MEDS: Sodium Chloride 0.9% 10 ML Syringe FLUSH PRN ×4 (02:22→17:28)
[2023-05-24] MEDS: Heparin Sodium 100 Units/ML 3 ML Syringe FLUSH SCH ×5 (02:26→17:29)
[2023-05-24] MEDS: Omeprazole 20 MG Cap.CR PO SCH (06:23)
[2023-05-24] MEDS: Furosemide 20 MG Tab PO SCH (09:12)
[2023-05-24] MEDS: amLODIPine 10 MG Tab PO SCH (09:13)
[2023-05-24] MEDS: Aspirin 81 MG Tab.EC PO SCH ×2 (09:13→20:55)
[2023-05-24] MEDS: Potassium Chloride 20 MEQ Tab.ER PO SCH (09:13)
[2023-05-24] MEDS: Magnesium Oxide 400 MG Tab PO SCH ×2 (09:13→20:55)
[2023-05-24] MEDS: Fenofibrate,Micronized 134 MG Cap PO SCH (09:13)
[2023-05-24] MEDS: Rifampin 150 MG Cap PO SCH ×2 (09:13→20:55)
[2023-05-24] MEDS: Polyethylene Glycol 3350 Powder 17 GM Packet PO SCH (09:15)
[2023-05-24] MEDS: [UNRECOGNIZED DRUG - OTHER] EYEBOTH PRN (12:37)
[2023-05-24] MEDS: Simvastatin 20 MG Tab PO SCH (20:55)
[2023-05-24] MEDS: Tamsulosin 0.4 MG Cap.ER PO SCH (20:55)
[2023-05-25] MEDS: Sodium Chloride 0.9% 10 ML Syringe FLUSH SCH ×3 (02:36→17:21)
[2023-05-25] MEDS: ceFAZolin 2 GM Vial IVPUSH SCH ×3 (02:40→17:17)
[2023-05-25] MEDS: Sodium Chloride 0.9% 10 ML Syringe FLUSH PRN ×4 (02:44→17:27)
[2023-05-25] MEDS: Heparin Sodium 100 Units/ML 3 ML Syringe FLUSH SCH ×5 (02:48→17:28)
[2023-05-25] MEDS: Omeprazole 20 MG Cap.CR PO SCH (06:00)
[2023-05-25] MEDS: Potassium Chloride 20 MEQ Tab.ER PO SCH (10:18)
[2023-05-25] MEDS: Furosemide 20 MG Tab PO SCH (10:18)
[2023-05-25] MEDS: Rifampin 150 MG Cap PO SCH ×2 (10:18→21:00)
[2023-05-25] MEDS: Magnesium Oxide 400 MG Tab PO SCH ×2 (10:19→20:56)
[2023-05-25] MEDS: Aspirin 81 MG Tab.EC PO SCH ×2 (10:19→20:55)
[2023-05-25] MEDS: Fenofibrate,Micronized 134 MG Cap PO SCH (10:19)
[2023-05-25] MEDS: Polyethylene Glycol 3350 Powder 17 GM Packet PO SCH (10:20)
[2023-05-25] MEDS: amLODIPine 10 MG Tab PO SCH (10:20)
[2023-05-25] MEDS: Simvastatin 20 MG Tab PO SCH (20:55)
[2023-05-25] MEDS: Tamsulosin 0.4 MG Cap.ER PO SCH (20:56)
[2023-05-26] MEDS: Sodium Chloride 0.9% 10 ML Syringe FLUSH SCH ×3 (01:14→18:08)
[2023-05-26] MEDS: ceFAZolin 2 GM Vial IVPUSH SCH ×3 (01:18→18:08)
[2023-05-26] MEDS: Sodium Chloride 0.9% 10 ML Syringe FLUSH PRN ×3 (01:22→06:53)
[2023-05-26] MEDS: Heparin Sodium 100 Units/ML 3 ML Syringe FLUSH SCH ×5 (01:26→18:09)
[2023-05-26] MEDS: Acetaminophen 325 MG Tab PO PRN (06:07)
[2023-05-26] MEDS: Omeprazole 20 MG Cap.CR PO SCH (06:07)
[2023-05-26] MEDS: Heparin Sodium 100 Units/ML 3 ML Syringe FLUSH PRN (06:57)
[2023-05-26 07:03] LABS: BASOPHILS PERCENT AUTO 0.8 % (0.2-1.2); EOSINOPHILS ABSOLUTE AUTO 0.2 x10^3/uL (0.0-0.5); EOSINOPHILS PERCENT AUTO 3.3 % (0.0-4.0); HEMATOCRIT 25.5 % (33.0-47.0); HEMOGLOBIN 8.3 g/dL (12.0-16.0); IMMATURE GRAN ABSOLUTE AUTO 0.01 x10^3/uL (0.00-0.07); LYMPHOCYTES ABSOLUTE AUTO 0.7 x10^3/uL (1.0-4.8); LYMPHOCYTES PERCENT AUTO 14.5 % (25.0-50.0); MEAN CORPUSCULAR HEMOGLOBIN 30.3 pg (26.0-32.0); MEAN CORPUSCULAR HGB CONC 32.5 g/dL (32.0-36.0); MEAN CORPUSCULAR VOLUME 93.1 fL (78.0-93.0); MONOCYTES PERCENT AUTO 20.5 % (2.0-11.0); NEUTROPHILS ABSOLUTE AUTO 2.9 x10^3/uL (1.8-7.7); NEUTROPHILS PERCENT AUTO 60.7 % (50.0-80.0); PLATELET COUNT,PLT 236 x10^3/uL (130-400); RED BLOOD CELL COUNT 2.74 x10^6/uL (4.00-5.50); WHITE BLOOD CELL COUNT,WBC 4.8 x10^3/uL (4.0-10.0)
[2023-05-26 07:17] LABS: C-REACTIVE PROTEIN 2.51 mg/dL (<=0.30); CREATININE 0.9 mg/dL (0.55-1.02); EST CRCL DRUG DOSING (CG) 30.8 mL/min
[2023-05-26] MEDS: Aspirin 81 MG Tab.EC PO SCH ×2 (09:49→20:07)
[2023-05-26] MEDS: Rifampin 150 MG Cap PO SCH ×2 (09:49→20:06)
[2023-05-26] MEDS: Furosemide 20 MG Tab PO SCH (09:49)
[2023-05-26] MEDS: Potassium Chloride 20 MEQ Tab.ER PO SCH (09:49)
[2023-05-26] MEDS: amLODIPine 10 MG Tab PO SCH (09:50)
[2023-05-26] MEDS: Polyethylene Glycol 3350 Powder 17 GM Packet PO SCH (09:50)
[2023-05-26] MEDS: Fenofibrate,Micronized 134 MG Cap PO SCH (09:50)
[2023-05-26] MEDS: Magnesium Oxide 400 MG Tab PO SCH ×2 (09:50→20:07)
[2023-05-26] MEDS: Simvastatin 20 MG Tab PO SCH (20:06)
[2023-05-26] MEDS: Tamsulosin 0.4 MG Cap.ER PO SCH (20:07)
[2023-05-27] MEDS: Sodium Chloride 0.9% 10 ML Syringe FLUSH SCH ×3 (01:08→17:53)
[2023-05-27] MEDS: ceFAZolin 2 GM Vial IVPUSH SCH ×3 (01:12→17:53)
[2023-05-27] MEDS: Sodium Chloride 0.9% 10 ML Syringe FLUSH PRN ×3 (01:16→10:11)
[2023-05-27] MEDS: Heparin Sodium 100 Units/ML 3 ML Syringe FLUSH SCH ×5 (01:20→18:01)
[2023-05-27] MEDS: [UNRECOGNIZED DRUG - OTHER] EYEBOTH PRN (01:23)
[2023-05-27] MEDS: Omeprazole 20 MG Cap.CR PO SCH (06:01)
[2023-05-27] MEDS: Potassium Chloride 20 MEQ Tab.ER PO SCH (09:58)
[2023-05-27] MEDS: Aspirin 81 MG Tab.EC PO SCH ×2 (09:58→20:12)
[2023-05-27] MEDS: Furosemide 20 MG Tab PO SCH (09:58)
[2023-05-27] MEDS: amLODIPine 10 MG Tab PO SCH (09:59)
[2023-05-27] MEDS: Magnesium Oxide 400 MG Tab PO SCH ×2 (09:59→20:12)
[2023-05-27] MEDS: Rifampin 150 MG Cap PO SCH ×2 (09:59→20:13)
[2023-05-27] MEDS: Fenofibrate,Micronized 134 MG Cap PO SCH (09:59)
[2023-05-27] MEDS: Polyethylene Glycol 3350 Powder 17 GM Packet PO SCH (10:05)
[2023-05-27] MEDS: Tamsulosin 0.4 MG Cap.ER PO SCH (20:12)
[2023-05-27] MEDS: Simvastatin 20 MG Tab PO SCH (20:12)
[2023-05-28] MEDS: Sodium Chloride 0.9% 10 ML Syringe FLUSH SCH ×3 (02:08→18:17)
[2023-05-28] MEDS: ceFAZolin 2 GM Vial IVPUSH SCH ×3 (02:12→18:17)
[2023-05-28] MEDS: Sodium Chloride 0.9% 10 ML Syringe FLUSH PRN ×2 (02:16→05:52)
[2023-05-28] MEDS: Heparin Sodium 100 Units/ML 3 ML Syringe FLUSH SCH ×5 (02:20→18:17)
[2023-05-28] MEDS: [UNRECOGNIZED DRUG - OTHER] EYEBOTH PRN (02:44)
[2023-05-28] MEDS: Omeprazole 20 MG Cap.CR PO SCH (06:03)
[2023-05-28] MEDS: Polyethylene Glycol 3350 Powder 17 GM Packet PO SCH (09:58)
[2023-05-28] MEDS: Aspirin 81 MG Tab.EC PO SCH ×2 (09:58→20:16)
[2023-05-28] MEDS: Potassium Chloride 20 MEQ Tab.ER PO SCH (09:58)
[2023-05-28] MEDS: Rifampin 150 MG Cap PO SCH ×2 (09:58→20:16)
[2023-05-28] MEDS: Fenofibrate,Micronized 134 MG Cap PO SCH (09:58)
[2023-05-28] MEDS: Furosemide 20 MG Tab PO SCH (09:58)
[2023-05-28] MEDS: Magnesium Oxide 400 MG Tab PO SCH ×2 (09:58→20:17)
[2023-05-28] MEDS: amLODIPine 10 MG Tab PO SCH (09:59)
[2023-05-28] MEDS: Acetaminophen 325 MG Tab PO PRN (10:14)
[2023-05-28] MEDS: Simvastatin 20 MG Tab PO SCH (20:16)
[2023-05-28] MEDS: Tamsulosin 0.4 MG Cap.ER PO SCH (20:16)
[2023-05-29] MEDS: Heparin Sodium 100 Units/ML 3 ML Syringe FLUSH SCH ×5 (02:42→18:13)
[2023-05-29] MEDS: Sodium Chloride 0.9% 10 ML Syringe FLUSH SCH ×3 (02:42→18:13)
[2023-05-29] MEDS: ceFAZolin 2 GM Vial IVPUSH SCH ×3 (02:46→18:13)
[2023-05-29] MEDS: Omeprazole 20 MG Cap.CR PO SCH (06:47)
[2023-05-29] MEDS: Fenofibrate,Micronized 134 MG Cap PO SCH (09:17)
[2023-05-29] MEDS: Magnesium Oxide 400 MG Tab PO SCH ×2 (09:17→20:11)
[2023-05-29] MEDS: Potassium Chloride 20 MEQ Tab.ER PO SCH (09:17)
[2023-05-29] MEDS: Furosemide 20 MG Tab PO SCH (09:17)
[2023-05-29] MEDS: Aspirin 81 MG Tab.EC PO SCH ×2 (09:17→20:11)
[2023-05-29] MEDS: Rifampin 150 MG Cap PO SCH ×2 (09:17→20:11)
[2023-05-29] MEDS: Polyethylene Glycol 3350 Powder 17 GM Packet PO SCH (09:18)
[2023-05-29] MEDS: amLODIPine 10 MG Tab PO SCH (09:18)
[2023-05-29] MEDS: Tamsulosin 0.4 MG Cap.ER PO SCH (20:11)
[2023-05-29] MEDS: Simvastatin 20 MG Tab PO SCH (20:11)
[2023-05-30] MEDS: Sodium Chloride 0.9% 10 ML Syringe FLUSH SCH ×3 (01:54→17:14)
[2023-05-30] MEDS: ceFAZolin 2 GM Vial IVPUSH SCH ×3 (01:55→17:12)
[2023-05-30] MEDS: Heparin Sodium 100 Units/ML 3 ML Syringe FLUSH SCH ×5 (02:04→17:24)
[2023-05-30] MEDS: Sodium Chloride 0.9% 10 ML Syringe FLUSH PRN ×3 (06:12→17:12)
[2023-05-30] MEDS: Omeprazole 20 MG Cap.CR PO SCH (06:13)
[2023-05-30] MEDS: Aspirin 81 MG Tab.EC PO SCH ×2 (09:25→20:26)
[2023-05-30] MEDS: Magnesium Oxide 400 MG Tab PO SCH ×2 (09:25→20:27)
[2023-05-30] MEDS: Fenofibrate,Micronized 134 MG Cap PO SCH (09:25)
[2023-05-30] MEDS: Furosemide 20 MG Tab PO SCH (09:25)
[2023-05-30] MEDS: Potassium Chloride 20 MEQ Tab.ER PO SCH (09:25)
[2023-05-30] MEDS: amLODIPine 10 MG Tab PO SCH (09:25)
[2023-05-30] MEDS: Rifampin 150 MG Cap PO SCH ×2 (09:25→20:26)
[2023-05-30] MEDS: Polyethylene Glycol 3350 Powder 17 GM Packet PO SCH (09:26)
[2023-05-30] MEDS: Tamsulosin 0.4 MG Cap.ER PO SCH (20:26)
[2023-05-30] MEDS: Simvastatin 20 MG Tab PO SCH (20:27)
[2023-05-31] MEDS: Sodium Chloride 0.9% 10 ML Syringe FLUSH SCH ×3 (01:50→17:19)
[2023-05-31] MEDS: ceFAZolin 2 GM Vial IVPUSH SCH ×3 (01:50→17:16)
[2023-05-31] MEDS: Heparin Sodium 100 Units/ML 3 ML Syringe FLUSH SCH ×5 (01:57→17:27)
[2023-05-31] MEDS: Heparin Sodium 100 Units/ML 3 ML Syringe FLUSH PRN (06:15)
[2023-05-31] MEDS: Omeprazole 20 MG Cap.CR PO SCH (06:15)
[2023-05-31] MEDS: Potassium Chloride 20 MEQ Tab.ER PO SCH (09:42)
[2023-05-31] MEDS: amLODIPine 10 MG Tab PO SCH (09:42)
[2023-05-31] MEDS: Rifampin 150 MG Cap PO SCH ×2 (09:42→20:18)
[2023-05-31] MEDS: Aspirin 81 MG Tab.EC PO SCH ×2 (09:42→20:19)
[2023-05-31] MEDS: Furosemide 20 MG Tab PO SCH (09:42)
[2023-05-31] MEDS: Magnesium Oxide 400 MG Tab PO SCH ×2 (09:42→20:18)
[2023-05-31] MEDS: Fenofibrate,Micronized 134 MG Cap PO SCH (09:42)
[2023-05-31] MEDS: Polyethylene Glycol 3350 Powder 17 GM Packet PO SCH (09:42)
[2023-05-31] MEDS: Sodium Chloride 0.9% 10 ML Syringe FLUSH PRN ×2 (09:54→17:26)
[2023-05-31] MEDS: Tamsulosin 0.4 MG Cap.ER PO SCH (20:18)
[2023-05-31] MEDS: Simvastatin 20 MG Tab PO SCH (20:19)
[2023-05-31] MEDS: Diclofenac Sodium 1% Gel 100 GM Tube TOP PRN (20:27)
[2023-06-01] MEDS: Sodium Chloride 0.9% 10 ML Syringe FLUSH SCH ×3 (01:27→17:15)
[2023-06-01] MEDS: ceFAZolin 2 GM Vial IVPUSH SCH ×3 (01:27→17:13)
[2023-06-01] MEDS: Heparin Sodium 100 Units/ML 3 ML Syringe FLUSH SCH ×5 (01:28→17:24)
[2023-06-01] MEDS: Sodium Chloride 0.9% 10 ML Syringe FLUSH PRN ×4 (01:28→17:23)
[2023-06-01] MEDS: Omeprazole 20 MG Cap.CR PO SCH (06:17)
[2023-06-01] MEDS: Rifampin 150 MG Cap PO SCH ×2 (09:56→20:01)
[2023-06-01] MEDS: Fenofibrate,Micronized 134 MG Cap PO SCH (09:56)
[2023-06-01] MEDS: Aspirin 81 MG Tab.EC PO SCH ×2 (09:57→20:00)
[2023-06-01] MEDS: Magnesium Oxide 400 MG Tab PO SCH ×2 (09:57→20:01)
[2023-06-01] MEDS: Furosemide 20 MG Tab PO SCH (09:57)
[2023-06-01] MEDS: Potassium Chloride 20 MEQ Tab.ER PO SCH (09:57)
[2023-06-01] MEDS: Polyethylene Glycol 3350 Powder 17 GM Packet PO SCH (09:59)
[2023-06-01] MEDS: amLODIPine 10 MG Tab PO SCH (09:59)
[2023-06-01] MEDS: Tamsulosin 0.4 MG Cap.ER PO SCH (20:00)
[2023-06-01] MEDS: Simvastatin 20 MG Tab PO SCH (20:00)
[2023-06-02] MEDS: ceFAZolin 2 GM Vial IVPUSH SCH ×3 (01:00→18:30)
[2023-06-02] MEDS: Heparin Sodium 100 Units/ML 3 ML Syringe FLUSH SCH ×5 (01:02→18:31)
[2023-06-02] MEDS: Sodium Chloride 0.9% 10 ML Syringe FLUSH SCH ×3 (01:03→18:30)
[2023-06-02] MEDS: Omeprazole 20 MG Cap.CR PO SCH (06:00)
[2023-06-02 07:17] LABS: BASOPHILS PERCENT AUTO 1.3 % (0.2-1.2); EOSINOPHILS ABSOLUTE AUTO 0.5 x10^3/uL (0.0-0.5); EOSINOPHILS PERCENT AUTO 15.2 % (0.0-4.0); HEMATOCRIT 26.9 % (33.0-47.0); HEMOGLOBIN 8.7 g/dL (12.0-16.0); IMMATURE GRAN ABSOLUTE AUTO 0.01 x10^3/uL (0.00-0.07); LYMPHOCYTES ABSOLUTE AUTO 0.7 x10^3/uL (1.0-4.8); LYMPHOCYTES PERCENT AUTO 23.2 % (25.0-50.0); MEAN CORPUSCULAR HEMOGLOBIN 29.8 pg (26.0-32.0); MEAN CORPUSCULAR HGB CONC 32.3 g/dL (32.0-36.0); MEAN CORPUSCULAR VOLUME 92.1 fL (78.0-93.0); MONOCYTES ABSOLUTE AUTO 1.7 x10^3/uL (0.0-0.8); MONOCYTES PERCENT AUTO 53.9 % (2.0-11.0); NEUTROPHILS ABSOLUTE AUTO 0.2 x10^3/uL (1.8-7.7); NEUTROPHILS PERCENT AUTO 6.1 % (50.0-80.0); RED BLOOD CELL COUNT 2.92 x10^6/uL (4.00-5.50); WHITE BLOOD CELL COUNT,WBC 3.1 x10^3/uL (4.0-10.0)
[2023-06-02 07:26] LABS: PLATELET COUNT,PLT 287 x10^3/uL (130-400)
[2023-06-02 07:34] LABS: C-REACTIVE PROTEIN 2.97 mg/dL (<=0.30); CREATININE 0.9 mg/dL (0.55-1.02); EST CRCL DRUG DOSING (CG) 30.8 mL/min
[2023-06-02] MEDS: amLODIPine 10 MG Tab PO SCH (09:23)
[2023-06-02] MEDS: Rifampin 150 MG Cap PO SCH ×2 (09:24→20:31)
[2023-06-02] MEDS: Magnesium Oxide 400 MG Tab PO SCH ×2 (09:24→20:31)
[2023-06-02] MEDS: Fenofibrate,Micronized 134 MG Cap PO SCH (09:24)
[2023-06-02] MEDS: Aspirin 81 MG Tab.EC PO SCH ×2 (09:24→20:31)
[2023-06-02] MEDS: Furosemide 20 MG Tab PO SCH (09:24)
[2023-06-02] MEDS: Potassium Chloride 20 MEQ Tab.ER PO SCH (09:24)
[2023-06-02] MEDS: Polyethylene Glycol 3350 Powder 17 GM Packet PO SCH (09:25)
[2023-06-02] MEDS: Simvastatin 20 MG Tab PO SCH (20:31)
[2023-06-03] MEDS: ceFAZolin 2 GM Vial IVPUSH SCH ×3 (02:29→18:00)
[2023-06-03] MEDS: Heparin Sodium 100 Units/ML 3 ML Syringe FLUSH SCH ×5 (02:29→18:42)
[2023-06-03] MEDS: Sodium Chloride 0.9% 10 ML Syringe FLUSH SCH ×3 (02:30→18:00)
[2023-06-03] MEDS: Omeprazole 20 MG Cap.CR PO SCH (06:20)
[2023-06-03] MEDS: Fenofibrate,Micronized 134 MG Cap PO SCH (08:57)
[2023-06-03] MEDS: Furosemide 20 MG Tab PO SCH (08:58)
[2023-06-03] MEDS: Aspirin 81 MG Tab.EC PO SCH ×2 (08:59→20:49)
[2023-06-03] MEDS: Magnesium Oxide 400 MG Tab PO SCH ×2 (08:59→20:49)
[2023-06-03] MEDS: amLODIPine 10 MG Tab PO SCH (08:59)
[2023-06-03] MEDS: Potassium Chloride 20 MEQ Tab.ER PO SCH (09:00)
[2023-06-03] MEDS: Rifampin 150 MG Cap PO SCH ×2 (09:00→20:49)
[2023-06-03] MEDS: Polyethylene Glycol 3350 Powder 17 GM Packet PO SCH (09:01)
[2023-06-03] MEDS: Hydrocortisone 1% Crm 30 GM Tube TOP SCH ×2 (11:53→20:53)
[2023-06-03] MEDS: Simvastatin 20 MG Tab PO SCH (20:49)
[2023-06-03] MEDS: Acetaminophen 325 MG Tab PO PRN (20:49)
[2023-06-03] MEDS: Diclofenac Sodium 1% Gel 100 GM Tube TOP PRN (20:50)
[2023-06-03] MEDS ORDERED: Tamsulosin 0.4 MG Cap.ER PO SCH (21:00)
[2023-06-04] MEDS: Sodium Chloride 0.9% 10 ML Syringe FLUSH SCH ×3 (02:08→18:27)
[2023-06-04] MEDS: ceFAZolin 2 GM Vial IVPUSH SCH ×3 (02:08→18:10)
[2023-06-04] MEDS: Heparin Sodium 100 Units/ML 3 ML Syringe FLUSH SCH ×5 (02:09→18:26)
[2023-06-04] MEDS: Sodium Chloride 0.9% 10 ML Syringe FLUSH PRN (02:10)
[2023-06-04] MEDS: amLODIPine 10 MG Tab PO SCH (08:36)
[2023-06-04] MEDS: Furosemide 20 MG Tab PO SCH (08:36)
[2023-06-04] MEDS: Omeprazole 20 MG Cap.CR PO SCH (08:41)
[2023-06-04] MEDS: Potassium Chloride 20 MEQ Tab.ER PO SCH (08:41)
[2023-06-04] MEDS: Fenofibrate,Micronized 134 MG Cap PO SCH (08:43)
[2023-06-04] MEDS: Magnesium Oxide 400 MG Tab PO SCH ×2 (08:43→20:07)
[2023-06-04] MEDS: Aspirin 81 MG Tab.EC PO SCH ×2 (08:44→20:07)
[2023-06-04] MEDS: Rifampin 150 MG Cap PO SCH ×2 (08:44→20:07)
[2023-06-04] MEDS: Polyethylene Glycol 3350 Powder 17 GM Packet PO SCH (08:46)
[2023-06-04] MEDS: Hydrocortisone 1% Crm 30 GM Tube TOP SCH ×2 (08:46→20:10)
[2023-06-04] MEDS: Simvastatin 20 MG Tab PO SCH (20:08)
[2023-06-04] MEDS: Acetaminophen 325 MG Tab PO PRN (20:08)
[2023-06-04] MEDS: Diclofenac Sodium 1% Gel 100 GM Tube TOP PRN (20:10)
[2023-06-04] MEDS: [UNRECOGNIZED DRUG - OTHER] EYEBOTH PRN (20:13)
[2023-06-05] MEDS: Heparin Sodium 100 Units/ML 3 ML Syringe FLUSH SCH ×5 (01:08→18:30)
[2023-06-05] MEDS: ceFAZolin 2 GM Vial IVPUSH SCH ×3 (01:08→18:03)
[2023-06-05] MEDS: Sodium Chloride 0.9% 10 ML Syringe FLUSH SCH ×3 (01:09→18:00)
[2023-06-05] MEDS: Sodium Chloride 0.9% 10 ML Syringe FLUSH PRN ×2 (01:10→06:29)
[2023-06-05] MEDS: Omeprazole 20 MG Cap.CR PO SCH (06:27)
[2023-06-05 06:36] LABS: BASOPHILS PERCENT AUTO 1.3 % (0.2-1.2); EOSINOPHILS ABSOLUTE AUTO 0.4 x10^3/uL (0.0-0.5); EOSINOPHILS PERCENT AUTO 12.9 % (0.0-4.0); HEMATOCRIT 27.9 % (33.0-47.0); HEMOGLOBIN 9.1 g/dL (12.0-16.0); IMMATURE GRAN ABSOLUTE AUTO 0.02 x10^3/uL (0.00-0.07); LYMPHOCYTES ABSOLUTE AUTO 0.8 x10^3/uL (1.0-4.8); LYMPHOCYTES PERCENT AUTO 25.9 % (25.0-50.0); MEAN CORPUSCULAR HGB CONC 32.6 g/dL (32.0-36.0); MEAN CORPUSCULAR VOLUME 92.1 fL (78.0-93.0); MONOCYTES ABSOLUTE AUTO 1.6 x10^3/uL (0.0-0.8); NEUTROPHILS ABSOLUTE AUTO 0.2 x10^3/uL (1.8-7.7); NEUTROPHILS PERCENT AUTO 6.9 % (50.0-80.0); PLATELET COUNT,PLT 299 x10^3/uL (130-400); RED BLOOD CELL COUNT 3.03 x10^6/uL (4.00-5.50); WHITE BLOOD CELL COUNT,WBC 3.1 x10^3/uL (4.0-10.0)
[2023-06-05 06:44] LABS: MONOCYTES PERCENT AUTO 52.4 % (2.0-11.0)
[2023-06-05] MEDS: Fenofibrate,Micronized 134 MG Cap PO SCH (09:27)
[2023-06-05] MEDS: Aspirin 81 MG Tab.EC PO SCH ×2 (09:27→21:00)
[2023-06-05] MEDS: Rifampin 150 MG Cap PO SCH ×2 (09:28→20:58)
[2023-06-05] MEDS: Furosemide 20 MG Tab PO SCH (09:29)
[2023-06-05] MEDS: amLODIPine 10 MG Tab PO SCH (09:29)
[2023-06-05] MEDS: Potassium Chloride 20 MEQ Tab.ER PO SCH (09:30)
[2023-06-05] MEDS: Magnesium Oxide 400 MG Tab PO SCH ×2 (09:30→21:00)
[2023-06-05] MEDS: predniSONE 20 MG Tab PO SCH (09:31)
[2023-06-05] MEDS: Hydrocortisone 1% Crm 30 GM Tube TOP SCH ×2 (09:31→20:59)
[2023-06-05] MEDS: Polyethylene Glycol 3350 Powder 17 GM Packet PO SCH (12:32)
[2023-06-05] MEDS: [UNRECOGNIZED DRUG - OTHER] EYEBOTH PRN (20:58)
[2023-06-05] MEDS: Diclofenac Sodium 1% Gel 100 GM Tube TOP PRN (20:59)
[2023-06-05] MEDS: diphenhydrAMINE 25 MG Cap PO PRN (21:00)
[2023-06-05] MEDS: Acetaminophen 325 MG Tab PO PRN (21:00)
[2023-06-05] MEDS: Simvastatin 20 MG Tab PO SCH (21:00)
[2023-06-06] MEDS: Sodium Chloride 0.9% 10 ML Syringe FLUSH SCH ×3 (01:59→18:56)
[2023-06-06] MEDS: ceFAZolin 2 GM Vial IVPUSH SCH ×3 (01:59→18:56)
[2023-06-06] MEDS: Heparin Sodium 100 Units/ML 3 ML Syringe FLUSH SCH ×5 (02:00→18:55)
[2023-06-06] MEDS: Sodium Chloride 0.9% 10 ML Syringe FLUSH PRN ×2 (02:00→06:34)
[2023-06-06] MEDS: hydrOXYzine HCl 25 MG Tab PO PRN ×2 (02:08→21:23)
[2023-06-06] MEDS: Omeprazole 20 MG Cap.CR PO SCH (06:33)
[2023-06-06] MEDS: amLODIPine 10 MG Tab PO SCH (09:34)
[2023-06-06] MEDS: Rifampin 150 MG Cap PO SCH ×2 (09:35→21:23)
[2023-06-06] MEDS: predniSONE 20 MG Tab PO SCH (09:35)
[2023-06-06] MEDS: Potassium Chloride 20 MEQ Tab.ER PO SCH (09:35)
[2023-06-06] MEDS: Fenofibrate,Micronized 134 MG Cap PO SCH (09:35)
[2023-06-06] MEDS: Furosemide 20 MG Tab PO SCH (09:35)
[2023-06-06] MEDS: Aspirin 81 MG Tab.EC PO SCH ×2 (09:35→21:24)
[2023-06-06] MEDS: Polyethylene Glycol 3350 Powder 17 GM Packet PO SCH (09:35)
[2023-06-06] MEDS: Magnesium Oxide 400 MG Tab PO SCH ×2 (09:35→21:23)
[2023-06-06] MEDS: Hydrocortisone 1% Crm 30 GM Tube TOP SCH ×2 (09:36→22:22)
[2023-06-06] MEDS: Famotidine 20 MG Tab PO SCH (14:09)
[2023-06-06] MEDS: Simvastatin 20 MG Tab PO SCH (21:23)
[2023-06-06] MEDS: diphenhydrAMINE 25 MG Cap PO PRN (21:23)
[2023-06-07] MEDS: ceFAZolin 2 GM Vial IVPUSH SCH ×3 (02:16→18:11)
[2023-06-07] MEDS: Heparin Sodium 100 Units/ML 3 ML Syringe FLUSH PRN (02:16)
[2023-06-07] MEDS: Heparin Sodium 100 Units/ML 3 ML Syringe FLUSH SCH ×5 (02:16→18:12)
[2023-06-07] MEDS: Sodium Chloride 0.9% 10 ML Syringe FLUSH SCH ×3 (02:17→18:12)
[2023-06-07] MEDS: Omeprazole 20 MG Cap.CR PO SCH ×2 (05:31→06:41)
[2023-06-07] MEDS: Aspirin 81 MG Tab.EC PO SCH ×2 (09:49→20:57)
[2023-06-07] MEDS: Famotidine 20 MG Tab PO SCH (09:49)
[2023-06-07] MEDS: Potassium Chloride 20 MEQ Tab.ER PO SCH (09:49)
[2023-06-07] MEDS: Rifampin 150 MG Cap PO SCH ×2 (09:49→20:56)
[2023-06-07] MEDS: Magnesium Oxide 400 MG Tab PO SCH ×2 (09:49→20:56)
[2023-06-07] MEDS: Furosemide 20 MG Tab PO SCH (09:50)
[2023-06-07] MEDS: predniSONE 20 MG Tab PO SCH (09:50)
[2023-06-07] MEDS: amLODIPine 10 MG Tab PO SCH (09:51)
[2023-06-07] MEDS: Polyethylene Glycol 3350 Powder 17 GM Packet PO SCH (09:55)
[2023-06-07] MEDS: Fenofibrate,Micronized 134 MG Cap PO SCH (09:55)
[2023-06-07] MEDS: Sodium Chloride 0.9% 10 ML Syringe FLUSH PRN (09:56)
[2023-06-07] MEDS: Hydrocortisone 1% Crm 30 GM Tube TOP SCH ×2 (14:49→21:07)
[2023-06-07] MEDS: Simvastatin 20 MG Tab PO SCH (20:56)
[2023-06-07] MEDS: diphenhydrAMINE 25 MG Cap PO PRN (20:56)
[2023-06-07] MEDS: [UNRECOGNIZED DRUG - OTHER] EYEBOTH PRN (21:07)
[2023-06-08] MEDS: Heparin Sodium 100 Units/ML 3 ML Syringe FLUSH SCH ×5 (02:20→17:31)
[2023-06-08] MEDS: ceFAZolin 2 GM Vial IVPUSH SCH ×3 (02:20→17:30)
[2023-06-08] MEDS: Sodium Chloride 0.9% 10 ML Syringe FLUSH SCH ×3 (02:21→17:30)
[2023-06-08] MEDS: Omeprazole 20 MG Cap.CR PO SCH (07:52)
[2023-06-08] MEDS: Potassium Chloride 20 MEQ Tab.ER PO SCH (09:14)
[2023-06-08] MEDS: Furosemide 20 MG Tab PO SCH (09:14)
[2023-06-08] MEDS: Aspirin 81 MG Tab.EC PO SCH ×2 (09:14→20:53)
[2023-06-08] MEDS: Fenofibrate,Micronized 134 MG Cap PO SCH (09:14)
[2023-06-08] MEDS: Magnesium Oxide 400 MG Tab PO SCH ×2 (09:14→20:53)
[2023-06-08] MEDS: Famotidine 20 MG Tab PO SCH (09:15)
[2023-06-08] MEDS: Rifampin 150 MG Cap PO SCH ×2 (09:15→20:53)
[2023-06-08] MEDS: Polyethylene Glycol 3350 Powder 17 GM Packet PO SCH (09:16)
[2023-06-08] MEDS: amLODIPine 10 MG Tab PO SCH (09:16)
[2023-06-08] MEDS: Hydrocortisone 1% Crm 30 GM Tube TOP SCH ×2 (09:18→20:56)
[2023-06-08] MEDS: Simvastatin 20 MG Tab PO SCH (20:53)
[2023-06-08] MEDS: diphenhydrAMINE 25 MG Cap PO PRN (20:53)
[2023-06-08] MEDS: hydrOXYzine HCl 25 MG Tab PO PRN (20:53)
[2023-06-09] MEDS: Heparin Sodium 100 Units/ML 3 ML Syringe FLUSH SCH ×4 (06:16→17:41)
[2023-06-09] MEDS: Omeprazole 20 MG Cap.CR PO SCH (06:17)
[2023-06-09] MEDS: Hydrocortisone 1% Crm 30 GM Tube TOP SCH ×3 (06:52→20:24)
[2023-06-09] MEDS: Heparin Sodium 100 Units/ML 3 ML Syringe FLUSH PRN (06:52)
[2023-06-09 06:56] LABS: BASOPHILS PERCENT AUTO 0.4 % (0.2-1.2); EOSINOPHILS ABSOLUTE AUTO 0.6 x10^3/uL (0.0-0.5); EOSINOPHILS PERCENT AUTO 8.7 % (0.0-4.0); HEMATOCRIT 34.4 % (33.0-47.0); IMMATURE GRAN ABSOLUTE AUTO 0.14 x10^3/uL (0.00-0.07); LYMPHOCYTES PERCENT AUTO 28.2 % (25.0-50.0); MEAN CORPUSCULAR HEMOGLOBIN 29.2 pg (26.0-32.0); MEAN CORPUSCULAR VOLUME 91.2 fL (78.0-93.0); MONOCYTES ABSOLUTE AUTO 1.6 x10^3/uL (0.0-0.8); NEUTROPHILS ABSOLUTE AUTO 2.7 x10^3/uL (1.8-7.7); PLATELET COUNT,PLT 329 x10^3/uL (130-400); RED BLOOD CELL COUNT 3.77 x10^6/uL (4.00-5.50); WHITE BLOOD CELL COUNT,WBC 7.1 x10^3/uL (4.0-10.0)
[2023-06-09 07:08] LABS: MONOCYTES PERCENT AUTO 22.7 % (2.0-11.0)
[2023-06-09 07:16] LABS: ANION GAP 14.1 mmol/L (5-15); CALCIUM 8.9 mg/dL (8.5-10.1); CREATININE 1.1 mg/dL (0.55-1.02); EST CRCL DRUG DOSING (CG) 25.88 mL/min; POTASSIUM,K 5.1 mmol/L (3.5-5.1)
[2023-06-09 07:23] LABS: C-REACTIVE PROTEIN 2.61 mg/dL (<=0.30)
[2023-06-09] MEDS: Rifampin 150 MG Cap PO SCH ×2 (08:15→20:25)
[2023-06-09] MEDS: Famotidine 20 MG Tab PO SCH (08:16)
[2023-06-09] MEDS: Potassium Chloride 20 MEQ Tab.ER PO SCH (08:16)
[2023-06-09] MEDS: Fenofibrate,Micronized 134 MG Cap PO SCH (08:16)
[2023-06-09] MEDS: amLODIPine 10 MG Tab PO SCH (08:17)
[2023-06-09] MEDS: Aspirin 81 MG Tab.EC PO SCH ×2 (08:18→20:26)
[2023-06-09] MEDS: Magnesium Oxide 400 MG Tab PO SCH ×2 (08:18→20:25)
[2023-06-09] MEDS: Furosemide 20 MG Tab PO SCH (08:19)
[2023-06-09] MEDS: Polyethylene Glycol 3350 Powder 17 GM Packet PO SCH (08:20)
[2023-06-09] MEDS: diphenhydrAMINE 25 MG Cap PO PRN ×2 (11:17→20:26)
[2023-06-09] MEDS: [UNRECOGNIZED DRUG - OTHER] EYEBOTH PRN (20:23)
[2023-06-09] MEDS: Diclofenac Sodium 1% Gel 100 GM Tube TOP PRN (20:24)
[2023-06-09] MEDS: Simvastatin 20 MG Tab PO SCH (20:26)
[2023-06-09] MEDS: Acetaminophen 325 MG Tab PO PRN (20:26)
[2023-06-09] MEDS: hydrOXYzine HCl 25 MG Tab PO PRN (23:19)
[2023-06-10] MEDS: Omeprazole 20 MG Cap.CR PO SCH (06:49)
[2023-06-10] MEDS: Heparin Sodium 100 Units/ML 3 ML Syringe FLUSH SCH ×4 (06:50→17:19)
[2023-06-10] MEDS: Sodium Chloride 0.9% 10 ML Syringe FLUSH PRN (06:50)
[2023-06-10] MEDS: Potassium Chloride 20 MEQ Tab.ER PO SCH (08:02)
[2023-06-10] MEDS: Magnesium Oxide 400 MG Tab PO SCH ×2 (08:02→20:35)
[2023-06-10] MEDS: Furosemide 20 MG Tab PO SCH (08:02)
[2023-06-10] MEDS: Aspirin 81 MG Tab.EC PO SCH (08:02)
[2023-06-10] MEDS: Famotidine 20 MG Tab PO SCH (08:02)
[2023-06-10] MEDS: Fenofibrate,Micronized 134 MG Cap PO SCH (08:02)
[2023-06-10] MEDS: amLODIPine 10 MG Tab PO SCH (08:03)
[2023-06-10] MEDS: Hydrocortisone 1% Crm 30 GM Tube TOP SCH ×2 (08:03→20:34)
[2023-06-10] MEDS: [UNRECOGNIZED DRUG - OTHER] EYEBOTH PRN ×2 (08:04→18:46)
[2023-06-10] MEDS: Polyethylene Glycol 3350 Powder 17 GM Packet PO SCH (08:10)
[2023-06-10] MEDS ORDERED: Sulfamethoxazole/Trimethoprim 400-80 MG Tab PO ONE (20:00)
[2023-06-10] MEDS: Acetaminophen 325 MG Tab PO PRN (20:35)
[2023-06-10] MEDS: diphenhydrAMINE 25 MG Cap PO PRN (20:35)
[2023-06-10] MEDS: Diclofenac Sodium 1% Gel 100 GM Tube TOP PRN (20:35)
[2023-06-10] MEDS: Simvastatin 20 MG Tab PO SCH (20:36)
[2023-06-10] MEDS ORDERED: Sulfamethoxazole/Trimethoprim 400-80 MG Tab PO SCH (21:00)
[2023-06-11] MEDS: Heparin Sodium 100 Units/ML 3 ML Syringe FLUSH SCH ×2 (07:11→07:12)
[2023-06-11] MEDS ORDERED: ALPRAZolam 0.25 MG Tab PO ONE (08:00)
[2023-06-11] MEDS: Fenofibrate,Micronized 134 MG Cap PO SCH (08:05)
[2023-06-11] MEDS: Furosemide 20 MG Tab PO SCH (08:05)
[2023-06-11] MEDS: Magnesium Oxide 400 MG Tab PO SCH ×2 (08:05→21:05)
[2023-06-11] MEDS: Aspirin 81 MG Tab.EC PO SCH (08:05)
[2023-06-11] MEDS: amLODIPine 10 MG Tab PO SCH (08:05)
[2023-06-11] MEDS: Potassium Chloride 20 MEQ Tab.ER PO SCH (08:05)
[2023-06-11] MEDS: Hydrocortisone 1% Crm 30 GM Tube TOP SCH ×2 (08:06→21:04)
[2023-06-11] MEDS: Polyethylene Glycol 3350 Powder 17 GM Packet PO SCH (08:08)
[2023-06-11] MEDS: Sulfamethoxazole/Trimethoprim 400-80 MG Tab PO SCH (09:52)
[2023-06-11] MEDS: Omeprazole 20 MG Cap.CR PO SCH (15:07)
[2023-06-11] MEDS: Diclofenac Sodium 1% Gel 100 GM Tube TOP PRN (21:04)
[2023-06-11] MEDS: diphenhydrAMINE 25 MG Cap PO PRN (21:05)
[2023-06-11] MEDS: Simvastatin 20 MG Tab PO SCH (21:05)
[2023-06-11] MEDS: Acetaminophen 325 MG Tab PO PRN (21:05)
[2023-06-12] MEDS: Omeprazole 20 MG Cap.CR PO SCH (06:33)
[2023-06-12] MEDS: Fenofibrate,Micronized 134 MG Cap PO SCH (08:24)
[2023-06-12] MEDS: Sulfamethoxazole/Trimethoprim 400-80 MG Tab PO SCH (08:24)
[2023-06-12] MEDS: Aspirin 81 MG Tab.EC PO SCH (08:24)
[2023-06-12] MEDS: Magnesium Oxide 400 MG Tab PO SCH ×2 (08:25→20:20)
[2023-06-12] MEDS: amLODIPine 10 MG Tab PO SCH (08:25)
[2023-06-12] MEDS: Furosemide 20 MG Tab PO SCH (08:25)
[2023-06-12] MEDS: Hydrocortisone 1% Crm 30 GM Tube TOP SCH ×2 (08:29→20:20)
[2023-06-12] MEDS: Polyethylene Glycol 3350 Powder 17 GM Packet PO SCH (08:31)
[2023-06-12] MEDS: Simvastatin 20 MG Tab PO SCH (20:20)
[2023-06-12] MEDS: diphenhydrAMINE 25 MG Cap PO PRN (20:20)
[2023-06-13] MEDS: Omeprazole 20 MG Cap.CR PO SCH (06:47)
[2023-06-13 07:10] VITALS: BP 140/70; PULSE 66
[2023-06-13 07:17] LABS: HEMATOCRIT 30.5 % (33.0-47.0); HEMOGLOBIN 9.9 g/dL (12.0-16.0); MEAN CORPUSCULAR HEMOGLOBIN 29.8 pg (26.0-32.0); MEAN CORPUSCULAR HGB CONC 32.5 g/dL (32.0-36.0); MEAN CORPUSCULAR VOLUME 91.9 fL (78.0-93.0); PLATELET COUNT,PLT 268 x10^3/uL (130-400); RED BLOOD CELL COUNT 3.32 x10^6/uL (4.00-5.50); WHITE BLOOD CELL COUNT,WBC 8.9 x10^3/uL (4.0-10.0)
[2023-06-13 07:31] LABS: CALCIUM 8.6 mg/dL (8.5-10.1); EST CRCL DRUG DOSING (CG) 28.47 mL/min; POTASSIUM,K 4.8 mmol/L (3.5-5.1)
[2023-06-13 07:44] LABS: ANION GAP 11.8 mmol/L (5-15)
[2023-06-13 07:56] LABS: BAND PERCENT MAN 4 % (0-6); EOSINOPHILS ABSOLUTE MAN 0.3 x10^3/uL (0.0-0.5); EOSINOPHILS PERCENT MAN 3 % (0-4); LYMPHOCYTES ABSOLUTE MAN 1.4 x10^3/uL (1.0-4.8); LYMPHOCYTES PERCENT MAN 11 % (25-50); MONOCYTES PERCENT MAN 11 % (2-11); NEUTROPHILS ABSOLUTE MAN 6.2 x10^3/uL (1.8-7.7); PLATELET COUNT ESTIMATE ADEQUATE; SEG NEUTROPHILS PERCENT MAN 66 % (50-80); TOXIC GRANULATION 1+ SLIGHT; VACUOLATED NEUTROPHILS 1+ SLIGHT
[2023-06-13] MEDS: Fenofibrate,Micronized 134 MG Cap PO SCH (10:01)
[2023-06-13] MEDS: Sulfamethoxazole/Trimethoprim 400-80 MG Tab PO SCH (10:02)
[2023-06-13] MEDS: Aspirin 81 MG Tab.EC PO SCH (10:02)
[2023-06-13] MEDS: amLODIPine 10 MG Tab PO SCH (10:02)
[2023-06-13] MEDS: Magnesium Oxide 400 MG Tab PO SCH (10:02)
[2023-06-13] MEDS: Polyethylene Glycol 3350 Powder 17 GM Packet PO SCH (10:03)
[2023-06-13] MEDS: Hydrocortisone 1% Crm 30 GM Tube TOP SCH (10:03)
[2023-06-13] MEDS: Furosemide 20 MG Tab PO SCH (10:03)
== END 2023-06-13 11:30 | disposition home or self-care (01) | DRG 548 ==
LOC: VM.MS 13:06
PROVIDERS: ADMIT Internal Medicine; ATTEND Internal Medicine
PROC: 0TPB70Z Removal of Drainage Device from Bladder, Via Natural or Artificial Opening (ICD-10-PCS; 2023-05-22)
PROC: 02PYX3Z Removal of Infusion Device from Great Vessel, External Approach (ICD-10-PCS; principal; 2023-06-13)
DX: M00.051 Staphylococcal arthritis, right hip (principal); E43 Unspecified severe protein-calorie malnutrition; K91.30 Postprocedural intestinal obstruction, unspecified as to partial versus complete; B95.61 Methicillin susceptible Staphylococcus aureus infection as the cause of diseases classified elsewhere; I10 Essential (primary) hypertension; R33.9 Retention of urine, unspecified; M54.9 Dorsalgia, unspecified; G89.29 Other chronic pain; M81.0 Age-related osteoporosis without current pathological fracture; J44.9 Chronic obstructive pulmonary disease, unspecified; Z96.641 Presence of right artificial hip joint; D64.89 Other specified anemias; R60.1 Generalized edema; E87.6 Hypokalemia; E83.51 Hypocalcemia; R11.2 Nausea with vomiting, unspecified; S72.051D Unspecified fracture of head of right femur, subsequent encounter for closed fracture with routine healing; I35.0 Nonrheumatic aortic (valve) stenosis; I35.1 Nonrheumatic aortic (valve) insufficiency; E11.65 Type 2 diabetes mellitus with hyperglycemia; R21 Rash and other nonspecific skin eruption; M21.511 Acquired clawhand, right hand; E78.2 Mixed hyperlipidemia; R32 Unspecified urinary incontinence; M19.011 Primary osteoarthritis, right shoulder; Z87.891 Personal history of nicotine dependence; Z97.8 Presence of other specified devices; Z79.82 Long term (current) use of aspirin; Z79.899 Other long term (current) drug therapy; Z87.01 Personal history of pneumonia (recurrent); Z98.49 Cataract extraction status, unspecified eye; Z90.89 Acquired absence of other organs; Z98.890 Other specified postprocedural states; X58.XXXD Exposure to other specified factors, subsequent encounter
CPT/HCPCS: 36415; 51701; 51702; 51798; 70450; 70551; 71046; 73030-RT; 74019; 80048; 80053; 80069; 82565; 82947; 83735; 83880; 84460; 85025; 86140; 87070; 94760; 95851-GO; 97110-GP; 97112-GP; 97116-GP; 97162-GP; 97164-GP; 97166-GO; 97168-GO; 97535-GO; A9270-GY; C1758; J0690; J1642; J2405; J2765; J3475; J3490; J7512

== ENCOUNTER 2024-04-22 07:43 | Day surgery (SDC) | payer MEDICARE ==
[2024-04-22] MEDS ORDERED: Propofol 200 MG/20 ML SDV ONE ×3 (08:13→10:25)
[2024-04-22] MEDS: Lactated Ringers 1,000 ML IV SCH (08:21)
[2024-04-22 11:02] VITALS: BP 153/72; PULSE 75
[2024-05-06] MEDS ORDERED: Lactated Ringers 1,000 ML IV SCH (07:00)
== END 2024-04-22 12:08 | disposition home or self-care (01) ==
LOC: VM.SDS 07:43
PROVIDERS: ATTEND Family Medicine
DX: C18.0 Malignant neoplasm of cecum (principal); D12.6 Benign neoplasm of colon, unspecified; K62.1 Rectal polyp; K63.5 Polyp of colon; K44.9 Diaphragmatic hernia without obstruction or gangrene; K57.30 Diverticulosis of large intestine without perforation or abscess without bleeding; E11.9 Type 2 diabetes mellitus without complications; D50.9 Iron deficiency anemia, unspecified; M81.0 Age-related osteoporosis without current pathological fracture; Z79.82 Long term (current) use of aspirin; Z79.899 Other long term (current) drug therapy
CPT/HCPCS: 00813; 88305; 88341; 88342; J2704; J7120

== ENCOUNTER 2024-08-09 15:59 | Inpatient (IN) | payer MEDICARE, OTHER ==
[2024-08-09 16:52] LABS: BASOPHILS PERCENT AUTO 0.2 % (0.2-1.2); HEMATOCRIT 39.6 % (33.0-47.0); HEMOGLOBIN 12.6 g/dL (12.0-16.0); IMMATURE GRAN ABSOLUTE AUTO 0.04 x10^3/uL (0.00-0.07); LYMPHOCYTES ABSOLUTE AUTO 1.2 x10^3/uL (1.0-4.8); LYMPHOCYTES PERCENT AUTO 10.7 % (25.0-50.0); MEAN CORPUSCULAR HEMOGLOBIN 27.2 pg (26.0-32.0); MEAN CORPUSCULAR HGB CONC 31.8 g/dL (32.0-36.0); MEAN CORPUSCULAR VOLUME 85.3 fL (78.0-93.0); MONOCYTES ABSOLUTE AUTO 1.2 x10^3/uL (0.0-0.8); MONOCYTES PERCENT AUTO 10.7 % (2.0-11.0); NEUTROPHILS ABSOLUTE AUTO 8.7 x10^3/uL (1.8-7.7); PLATELET COUNT,PLT 318 x10^3/uL (130-400); RED BLOOD CELL COUNT 4.64 x10^6/uL (4.00-5.50); WHITE BLOOD CELL COUNT,WBC 11.1 x10^3/uL (4.0-10.0)
[2024-08-09] MEDS ORDERED: Sodium Chloride 0.9% 10 ML Syringe FLUSH PRN (16:54)
[2024-08-09] MEDS ORDERED: Ondansetron 4 MG Tab.DIS PO PRN (16:54)
[2024-08-09] MEDS ORDERED: Acetaminophen/oxyCODONE 325-5 MG Tab PO PRN (16:54)
[2024-08-09] MEDS ORDERED: Ondansetron 4 MG/2 ML SDV IV PRN (16:54)
[2024-08-09] MEDS ORDERED: Menthol 10%/Methyl Salicylate 15% 85 GM Tube TOP PRN (16:59)
[2024-08-09] MEDS ORDERED: Acetaminophen 325 MG Tab PO PRN (16:59)
[2024-08-09] MEDS ORDERED: Omeprazole 20 MG Cap.CR PO PRN (16:59)
[2024-08-09] MEDS ORDERED: Diclofenac Sodium 1% Gel 100 GM Tube TOP PRN (16:59)
[2024-08-09] MEDS: DIFLUPREDNATE EYE EYEBOTH SCH (17:07)
[2024-08-09] MEDS: Sodium Chloride 0.9% 1,000 ML IV SCH (17:07)
[2024-08-09 17:08] LABS: A/G RATIO 1.07; ALBUMIN 3.2 g/dL (3.4-5.0); ANION GAP 13.1 mmol/L (5-15); BILIRUBIN TOTAL 0.3 mg/dL (0.2-1.0); CALCIUM 8.9 mg/dL (8.5-10.1); CREATININE 1.5 mg/dL (0.55-1.02); EST CRCL DRUG DOSING (CG) 17.68 mL/min; POTASSIUM,K 4.1 mmol/L (3.5-5.1); PROTEIN TOTAL,TP 6.2 g/dL (6.4-8.2)
[2024-08-09 17:15] LABS: LACTIC ACID 1.9 mmol/L (0.4-2.0)
[2024-08-09] MEDS: Calcium Citrate/Vitamin D3 315 MG-250 Unit Tab PO SCH (21:23)
[2024-08-09 22:25] LABS: APPEARANCE,URINE CLEAR (CLEAR); BILIRUBIN,URINE NEGATIVE (NEGATIVE); COLOR,URINE YELLOW (YELLOW); GLUCOSE,URINE NEGATIVE (NEGATIVE); KETONES,URINE NEGATIVE (NEGATIVE); LEUKOCYTE ESTERASE,URINE NEGATIVE (NEGATIVE); NITRITE,URINE NEGATIVE (NEGATIVE); OCCULT BLOOD,URINE NEGATIVE (NEGATIVE); PH,URINE 5.5 (5.0-8.0); PROTEIN,URINE TRACE mg/dL (NEGATIVE); UROBILINOGEN,URINE 0.2 EU/dL (0.2)
[2024-08-09 22:26] LABS: BACTERIA,URINE RARE /HPF (NOT SEEN); HYALINE CASTS,URINE FEW; MUCUS,URINE OCCASIONAL /LPF (NOT SEEN); RBC,URINE 0-5 /HPF (NOT SEEN); SQUAMOUS EPITHELIAL CELLS,UR OCCASIONAL /HPF (NOT SEEN); WBC,URINE 0-5 /HPF (NOT SEEN)
[2024-08-09] MEDS: Vitamin B Complex Tab PO SCH (23:00)
[2024-08-10 07:02] LABS: BASOPHILS PERCENT AUTO 0.4 % (0.2-1.2); HEMATOCRIT 35.2 % (33.0-47.0); HEMOGLOBIN 11.3 g/dL (12.0-16.0); IMMATURE GRAN ABSOLUTE AUTO 0.03 x10^3/uL (0.00-0.07); LYMPHOCYTES ABSOLUTE AUTO 1.2 x10^3/uL (1.0-4.8); LYMPHOCYTES PERCENT AUTO 14.7 % (25.0-50.0); MEAN CORPUSCULAR HEMOGLOBIN 27.6 pg (26.0-32.0); MEAN CORPUSCULAR HGB CONC 32.1 g/dL (32.0-36.0); MEAN CORPUSCULAR VOLUME 85.9 fL (78.0-93.0); MONOCYTES ABSOLUTE AUTO 0.8 x10^3/uL (0.0-0.8); MONOCYTES PERCENT AUTO 9.7 % (2.0-11.0); NEUTROPHILS ABSOLUTE AUTO 5.8 x10^3/uL (1.8-7.7); NEUTROPHILS PERCENT AUTO 74.8 % (50.0-80.0); PLATELET COUNT,PLT 272 x10^3/uL (130-400); WHITE BLOOD CELL COUNT,WBC 7.8 x10^3/uL (4.0-10.0)
[2024-08-10 07:11] LABS: CALCIUM 8.4 mg/dL (8.5-10.1); CREATININE 1.1 mg/dL (0.55-1.02); EST CRCL DRUG DOSING (CG) 25.39 mL/min; POTASSIUM,K 4.1 mmol/L (3.5-5.1)
[2024-08-10 07:25] LABS: ANION GAP 11.1 mmol/L (5-15)
[2024-08-10] MEDS: Beta-Carotene (Vitamin A) w/Vitamin C & E plus Minerals Tab PO SCH (08:39)
[2024-08-10] MEDS: Aspirin 81 MG Tab.EC PO SCH (08:39)
[2024-08-10] MEDS: Magnesium Oxide 400 MG Tab PO SCH (08:39)
[2024-08-10] MEDS: Cyanocobalamin (Vitamin B12) 250 MCG Tab PO SCH (08:39)
[2024-08-10] MEDS: amLODIPine 5 MG Tab PO SCH (08:39)
[2024-08-10] MEDS: Ascorbic Acid 500 MG Tab PO SCH (08:39)
[2024-08-10] MEDS: Sulfamethoxazole/Trimethoprim 400-80 MG Tab PO SCH (08:40)
[2024-08-10] MEDS: Cholecalciferol (Vitamin D3) 25 MCG Tab PO SCH (12:21)
[2024-08-10] MEDS: Enoxaparin 30 MG/0.3 ML Syringe SUBCUT SCH (12:21)
[2024-08-11] MEDS: Non-Formulary Medication 1 Each (Ferrous Gluconate [Ferrous Gluconate] 324 MG Tablet) PO SCH (02:01)
[2024-08-11 07:08] LABS: BASOPHILS PERCENT AUTO 0.3 % (0.2-1.2); HEMATOCRIT 36.8 % (33.0-47.0); HEMOGLOBIN 11.6 g/dL (12.0-16.0); IMMATURE GRAN ABSOLUTE AUTO 0.03 x10^3/uL (0.00-0.07); LYMPHOCYTES ABSOLUTE AUTO 1.3 x10^3/uL (1.0-4.8); LYMPHOCYTES PERCENT AUTO 19.3 % (25.0-50.0); MEAN CORPUSCULAR HGB CONC 31.5 g/dL (32.0-36.0); MEAN CORPUSCULAR VOLUME 85.6 fL (78.0-93.0); MONOCYTES ABSOLUTE AUTO 0.8 x10^3/uL (0.0-0.8); MONOCYTES PERCENT AUTO 11.4 % (2.0-11.0); NEUTROPHILS ABSOLUTE AUTO 4.8 x10^3/uL (1.8-7.7); NEUTROPHILS PERCENT AUTO 68.6 % (50.0-80.0); PLATELET COUNT,PLT 255 x10^3/uL (130-400); WHITE BLOOD CELL COUNT,WBC 6.9 x10^3/uL (4.0-10.0)
[2024-08-11 07:24] LABS: A/G RATIO 1.07; BILIRUBIN TOTAL 0.3 mg/dL (0.2-1.0); EST CRCL DRUG DOSING (CG) 27.93 mL/min; POTASSIUM,K 4.2 mmol/L (3.5-5.1); PROTEIN TOTAL,TP 5.8 g/dL (6.4-8.2)
[2024-08-11 07:27] LABS: ANION GAP 11.2 mmol/L (5-15)
[2024-08-11] MEDS: Acetaminophen 500 MG Tab PO SCH (09:47)
[2024-08-12 14:19] VITALS: BP 117/59; PULSE 65
== END 2024-08-12 14:20 | disposition swing bed (61) | DRG 682 ==
LOC: VM.MS 15:59
PROVIDERS: ADMIT Internal Medicine; ATTEND Internal Medicine
DX: N17.9 Acute kidney failure, unspecified (principal); E43 Unspecified severe protein-calorie malnutrition; C18.9 Malignant neoplasm of colon, unspecified; E86.0 Dehydration; G89.29 Other chronic pain; M25.519 Pain in unspecified shoulder; F17.210 Nicotine dependence, cigarettes, uncomplicated; Z96.649 Presence of unspecified artificial hip joint; T45.1X5A Adverse effect of antineoplastic and immunosuppressive drugs, initial encounter; F15.90 Other stimulant use, unspecified, uncomplicated; E78.00 Pure hypercholesterolemia, unspecified; K59.09 Other constipation; M54.9 Dorsalgia, unspecified; I10 Essential (primary) hypertension; M81.0 Age-related osteoporosis without current pathological fracture; R29.6 Repeated falls; D63.0 Anemia in neoplastic disease; Z79.1 Long term (current) use of non-steroidal anti-inflammatories (NSAID); Z79.82 Long term (current) use of aspirin; Z79.899 Other long term (current) drug therapy; Z79.02 Long term (current) use of antithrombotics/antiplatelets; Z90.89 Acquired absence of other organs; Z68.22 Body mass index [BMI] 22.0-22.9, adult; Z98.49 Cataract extraction status, unspecified eye; Z90.49 Acquired absence of other specified parts of digestive tract
CPT/HCPCS: 36415; 51798; 71045; 80048; 80053; 81001; 82550; 82947; 83605; 83880; 85025; 97110-GP; 97116-GP; 97162-GP; 97165-GO; 97535-GO; A9270-GY; J1650; J7030

== ENCOUNTER 2024-08-12 09:30 | Inpatient (IN) | payer MEDICARE, OTHER ==
[2024-08-12] MEDS: DIFLUPREDNATE EYELF SCH (16:00)
[2024-08-12] MEDS: Calcium Citrate/Vitamin D3 315 MG-250 Unit Tab PO SCH (20:38)
[2024-08-13] MEDS: Acetaminophen/oxyCODONE 325-5 MG Tab PO PRN (02:08)
[2024-08-13 08:54] LABS: BASOPHILS PERCENT AUTO 0.4 % (0.2-1.2); HEMATOCRIT 40.6 % (33.0-47.0); IMMATURE GRAN ABSOLUTE AUTO 0.05 x10^3/uL (0.00-0.07); LYMPHOCYTES ABSOLUTE AUTO 1.4 x10^3/uL (1.0-4.8); LYMPHOCYTES PERCENT AUTO 16.2 % (25.0-50.0); MEAN CORPUSCULAR HEMOGLOBIN 27.3 pg (26.0-32.0); MEAN CORPUSCULAR VOLUME 85.1 fL (78.0-93.0); MONOCYTES PERCENT AUTO 11.7 % (2.0-11.0); NEUTROPHILS PERCENT AUTO 71.1 % (50.0-80.0); PLATELET COUNT,PLT 301 x10^3/uL (130-400); RED BLOOD CELL COUNT 4.77 x10^6/uL (4.00-5.50); WHITE BLOOD CELL COUNT,WBC 8.5 x10^3/uL (4.0-10.0)
[2024-08-13] MEDS: Sulfamethoxazole/Trimethoprim 400-80 MG Tab PO SCH (09:05)
[2024-08-13] MEDS: Aspirin 81 MG Tab.EC PO SCH (09:06)
[2024-08-13 09:10] LABS: ALBUMIN 3.4 g/dL (3.4-5.0); ANION GAP 11.8 mmol/L (5-15); BILIRUBIN TOTAL 0.4 mg/dL (0.2-1.0); CALCIUM 9.2 mg/dL (8.5-10.1); CREATININE 1.1 mg/dL (0.55-1.02); EST CRCL DRUG DOSING (CG) 25.39 mL/min; POTASSIUM,K 4.8 mmol/L (3.5-5.1); PROTEIN TOTAL,TP 6.8 g/dL (6.4-8.2)
[2024-08-13] MEDS: Amoxicillin/Clavulanate K 875-125 MG Tab PO SCH (09:10)
[2024-08-13] MEDS: Magnesium Oxide 400 MG Tab PO SCH (09:11)
[2024-08-13] MEDS: amLODIPine 5 MG Tab PO SCH (09:11)
[2024-08-13] MEDS: Cholecalciferol (Vitamin D3) 25 MCG Tab PO SCH (09:11)
[2024-08-13] MEDS: Ascorbic Acid 500 MG Tab PO SCH (09:11)
[2024-08-13] MEDS: Acetaminophen 500 MG Tab PO SCH (09:11)
[2024-08-13] MEDS: Cyanocobalamin (Vitamin B12) 250 MCG Tab PO SCH (09:12)
[2024-08-13] MEDS: Beta-Carotene (Vitamin A) w/Vitamin C & E plus Minerals Tab PO SCH (09:12)
[2024-08-13] MEDS ORDERED: Acetaminophen/oxyCODONE 325-5 MG Tab PO PRN (12:10)
[2024-08-13] MEDS: Ondansetron 4 MG Tab.DIS PO PRN (16:01)
[2024-08-13] MEDS: Omeprazole 20 MG Cap.CR PO PRN (16:07)
[2024-08-13] MEDS: Dexamethasone 4 MG Tab PO SCH (18:17)
[2024-08-13] MEDS: Vitamin B Complex Tab PO SCH (18:17)
[2024-08-13] MEDS: Rosuvastatin 20 MG Tab PO SCH (20:48)
[2024-08-13] MEDS: Acetaminophen 325 MG Tab PO PRN (21:48)
[2024-08-14] MEDS: Dexamethasone 4 MG Tab PO SCH (08:49)
[2024-08-17 06:52] LABS: HEMATOCRIT 33.7 % (33.0-47.0); IMMATURE GRAN ABSOLUTE AUTO 0.51 x10^3/uL (0.00-0.07); LYMPHOCYTES PERCENT AUTO 7.5 % (25.0-50.0); MEAN CORPUSCULAR HEMOGLOBIN 27.4 pg (26.0-32.0); MEAN CORPUSCULAR HGB CONC 32.6 g/dL (32.0-36.0); MONOCYTES ABSOLUTE AUTO 0.7 x10^3/uL (0.0-0.8); MONOCYTES PERCENT AUTO 5.4 % (2.0-11.0); NEUTROPHILS ABSOLUTE AUTO 11.3 x10^3/uL (1.8-7.7); NEUTROPHILS PERCENT AUTO 83.3 % (50.0-80.0); PLATELET COUNT,PLT 287 x10^3/uL (130-400); RED BLOOD CELL COUNT 4.01 x10^6/uL (4.00-5.50); WHITE BLOOD CELL COUNT,WBC 13.6 x10^3/uL (4.0-10.0)
[2024-08-17 07:07] LABS: CALCIUM 8.3 mg/dL (8.5-10.1); CREATININE 1.1 mg/dL (0.55-1.02); EST CRCL DRUG DOSING (CG) 25.39 mL/min; POTASSIUM,K 4.8 mmol/L (3.5-5.1)
[2024-08-17 07:18] LABS: ANION GAP 9.8 mmol/L (5-15)
[2024-08-18] MEDS: ALPRAZolam 0.25 MG Tab PO ONE (14:23)
[2024-08-18] MEDS ORDERED: Gadoteridol 279.3 MG/ML 20 ML SDV ONE (14:55)
[2024-08-19] MEDS: Bisacodyl 10 MG Supp RECTAL PRN (16:33)
[2024-08-19] MEDS: Dexamethasone 4 MG Tab PO SCH (21:14)
[2024-08-20 07:02] LABS: BASOPHILS PERCENT AUTO 0.1 % (0.2-1.2); HEMATOCRIT 34.8 % (33.0-47.0); HEMOGLOBIN 11.3 g/dL (12.0-16.0); IMMATURE GRAN ABSOLUTE AUTO 1.84 x10^3/uL (0.00-0.07); LYMPHOCYTES ABSOLUTE AUTO 1.1 x10^3/uL (1.0-4.8); LYMPHOCYTES PERCENT AUTO 6.1 % (25.0-50.0); MEAN CORPUSCULAR HEMOGLOBIN 27.5 pg (26.0-32.0); MEAN CORPUSCULAR HGB CONC 32.5 g/dL (32.0-36.0); MEAN CORPUSCULAR VOLUME 84.7 fL (78.0-93.0); MONOCYTES ABSOLUTE AUTO 1.3 x10^3/uL (0.0-0.8); MONOCYTES PERCENT AUTO 7.4 % (2.0-11.0); NEUTROPHILS ABSOLUTE AUTO 13.1 x10^3/uL (1.8-7.7); NEUTROPHILS PERCENT AUTO 75.8 % (50.0-80.0); PLATELET COUNT,PLT 317 x10^3/uL (130-400); RED BLOOD CELL COUNT 4.11 x10^6/uL (4.00-5.50)
[2024-08-20 07:09] LABS: CALCIUM 8.7 mg/dL (8.5-10.1); CREATININE 1.1 mg/dL (0.55-1.02); EST CRCL DRUG DOSING (CG) 25.39 mL/min; POTASSIUM,K 4.7 mmol/L (3.5-5.1)
[2024-08-20 07:10] LABS: ANION GAP 12.7 mmol/L (5-15)
[2024-08-20 07:19] LABS: WHITE BLOOD CELL COUNT,WBC 17.3 x10^3/uL (4.0-10.0)
[2024-08-20] MEDS: glipiZIDE 5 MG Tab.ER PO SCH ×2 (17:00→20:14)
[2024-08-20] MEDS: Dexamethasone 4 MG Tab PO SCH (20:23)
[2024-08-20 23:58] LABS: APPEARANCE,URINE CLEAR (CLEAR); BILIRUBIN,URINE NEGATIVE (NEGATIVE); COLOR,URINE YELLOW (YELLOW); GLUCOSE,URINE NEGATIVE (NEGATIVE); KETONES,URINE NEGATIVE (NEGATIVE); LEUKOCYTE ESTERASE,URINE NEGATIVE (NEGATIVE); NITRITE,URINE NEGATIVE (NEGATIVE); OCCULT BLOOD,URINE NEGATIVE (NEGATIVE); PROTEIN,URINE NEGATIVE (NEGATIVE); UROBILINOGEN,URINE 0.2 EU/dL (0.2)
[2024-08-21 08:12] LABS: HEMATOCRIT 34.1 % (33.0-47.0); HEMOGLOBIN 11.3 g/dL (12.0-16.0); MEAN CORPUSCULAR HEMOGLOBIN 27.9 pg (26.0-32.0); MEAN CORPUSCULAR HGB CONC 33.1 g/dL (32.0-36.0); MEAN CORPUSCULAR VOLUME 84.2 fL (78.0-93.0); PLATELET COUNT,PLT 286 x10^3/uL (130-400); RED BLOOD CELL COUNT 4.05 x10^6/uL (4.00-5.50); WHITE BLOOD CELL COUNT,WBC 16.5 x10^3/uL (4.0-10.0)
[2024-08-21 08:31] LABS: A/G RATIO 1.08; ALBUMIN 2.8 g/dL (3.4-5.0); BAND PERCENT MAN 5 % (0-6); BILIRUBIN TOTAL 0.3 mg/dL (0.2-1.0); CALCIUM 8.5 mg/dL (8.5-10.1); EST CRCL DRUG DOSING (CG) 27.93 mL/min; LYMPHOCYTES ABSOLUTE MAN 1.2 x10^3/uL (1.0-4.8); LYMPHOCYTES PERCENT MAN 7 % (25-50); METAMYELOCYTE PERCENT MAN 2 % (0); MONOCYTES PERCENT MAN 6 % (2-11); PLATELET COUNT ESTIMATE ADEQUATE; POTASSIUM,K 4.8 mmol/L (3.5-5.1); PROTEIN TOTAL,TP 5.4 g/dL (6.4-8.2); SEG NEUTROPHILS PERCENT MAN 80 % (50-80)
[2024-08-21 08:33] LABS: ANION GAP 11.8 mmol/L (5-15)
[2024-08-24] MEDS: LORazepam 0.5 MG Tab PO PRN (21:56)
[2024-08-25 07:13] LABS: BASOPHILS PERCENT AUTO 0.1 % (0.2-1.2); EOSINOPHILS PERCENT AUTO 0.2 % (0.0-4.0); HEMATOCRIT 33.3 % (33.0-47.0); IMMATURE GRAN ABSOLUTE AUTO 1.18 x10^3/uL (0.00-0.07); LYMPHOCYTES ABSOLUTE AUTO 0.9 x10^3/uL (1.0-4.8); LYMPHOCYTES PERCENT AUTO 4.9 % (25.0-50.0); MEAN CORPUSCULAR HEMOGLOBIN 27.5 pg (26.0-32.0); MEAN CORPUSCULAR VOLUME 83.3 fL (78.0-93.0); MONOCYTES ABSOLUTE AUTO 0.8 x10^3/uL (0.0-0.8); MONOCYTES PERCENT AUTO 4.1 % (2.0-11.0); NEUTROPHILS ABSOLUTE AUTO 15.6 x10^3/uL (1.8-7.7); NEUTROPHILS PERCENT AUTO 84.3 % (50.0-80.0); PLATELET COUNT,PLT 233 x10^3/uL (130-400); WHITE BLOOD CELL COUNT,WBC 18.5 x10^3/uL (4.0-10.0)
[2024-08-25 07:27] LABS: CALCIUM 8.6 mg/dL (8.5-10.1); CREATININE 0.8 mg/dL (0.55-1.02); EST CRCL DRUG DOSING (CG) 34.91 mL/min; POTASSIUM,K 4.9 mmol/L (3.5-5.1)
[2024-08-25 07:28] LABS: ANION GAP 10.9 mmol/L (5-15)
[2024-08-26] MEDS ORDERED: Glucagon,Human Recombinant 1 MG Vial IM PRN (08:00)
[2024-08-26] MEDS ORDERED: 50% Dextrose in Water 50 ML Syringe IVPUSH PRN (08:00)
[2024-08-26] MEDS: glipiZIDE 5 MG Tab.ER PO SCH (09:16)
[2024-08-26] MEDS: Insulin Glarg,Human.Rec.Analog 100 Unit/ML 10 ML Vial SUBCUT SCH (09:23)
[2024-08-27 07:18] LABS: EOSINOPHILS PERCENT AUTO 0.1 % (0.0-4.0); HEMATOCRIT 34.3 % (33.0-47.0); HEMOGLOBIN 11.2 g/dL (12.0-16.0); IMMATURE GRAN ABSOLUTE AUTO 0.87 x10^3/uL (0.00-0.07); LYMPHOCYTES ABSOLUTE AUTO 0.7 x10^3/uL (1.0-4.8); LYMPHOCYTES PERCENT AUTO 3.8 % (25.0-50.0); MEAN CORPUSCULAR HEMOGLOBIN 27.5 pg (26.0-32.0); MEAN CORPUSCULAR HGB CONC 32.7 g/dL (32.0-36.0); MEAN CORPUSCULAR VOLUME 84.1 fL (78.0-93.0); MONOCYTES ABSOLUTE AUTO 0.6 x10^3/uL (0.0-0.8); MONOCYTES PERCENT AUTO 3.2 % (2.0-11.0); NEUTROPHILS ABSOLUTE AUTO 17.3 x10^3/uL (1.8-7.7); NEUTROPHILS PERCENT AUTO 88.5 % (50.0-80.0); PLATELET COUNT,PLT 242 x10^3/uL (130-400); RED BLOOD CELL COUNT 4.08 x10^6/uL (4.00-5.50)
[2024-08-27 07:38] LABS: WHITE BLOOD CELL COUNT,WBC 19.6 x10^3/uL (4.0-10.0)
[2024-08-27 07:44] LABS: ALBUMIN 2.8 g/dL (3.4-5.0); BILIRUBIN TOTAL 0.3 mg/dL (0.2-1.0); CALCIUM 8.6 mg/dL (8.5-10.1); CREATININE 0.9 mg/dL (0.55-1.02); EST CRCL DRUG DOSING (CG) 31.04 mL/min; POTASSIUM,K 4.8 mmol/L (3.5-5.1); PROTEIN TOTAL,TP 5.6 g/dL (6.4-8.2)
[2024-08-27 07:49] LABS: ANION GAP 13.8 mmol/L (5-15)
[2024-08-27] MEDS ORDERED: Meclizine 25 MG Tab PO PRN (08:50)
[2024-08-27 10:27] VITALS: BP 123/65; PULSE 60
== END 2024-08-27 10:45 | disposition home or self-care (01) | DRG 947 ==
LOC: VM.MS 14:20
PROVIDERS: ADMIT Internal Medicine; ATTEND Internal Medicine
DX: R53.1 Weakness (principal); E43 Unspecified severe protein-calorie malnutrition; N17.9 Acute kidney failure, unspecified; C18.9 Malignant neoplasm of colon, unspecified; M62.82 Rhabdomyolysis; H20.9 Unspecified iridocyclitis; E86.0 Dehydration; E78.00 Pure hypercholesterolemia, unspecified; K59.09 Other constipation; G89.29 Other chronic pain; M54.9 Dorsalgia, unspecified; Z96.649 Presence of unspecified artificial hip joint; F17.210 Nicotine dependence, cigarettes, uncomplicated; F15.90 Other stimulant use, unspecified, uncomplicated; R29.6 Repeated falls; M81.0 Age-related osteoporosis without current pathological fracture; M19.011 Primary osteoarthritis, right shoulder; Z66 Do not resuscitate; F43.20 Adjustment disorder, unspecified; D72.829 Elevated white blood cell count, unspecified; T38.0X5A Adverse effect of glucocorticoids and synthetic analogues, initial encounter; E11.65 Type 2 diabetes mellitus with hyperglycemia; Z79.1 Long term (current) use of non-steroidal anti-inflammatories (NSAID); Z79.82 Long term (current) use of aspirin; Z79.899 Other long term (current) drug therapy; Z79.02 Long term (current) use of antithrombotics/antiplatelets; Z90.89 Acquired absence of other organs; Z98.49 Cataract extraction status, unspecified eye; Z90.49 Acquired absence of other specified parts of digestive tract; Z98.890 Other specified postprocedural states; M80.00XD Age-related osteoporosis with current pathological fracture, unspecified site, subsequent encounter for fracture with routine healing; Z68.22 Body mass index [BMI] 22.0-22.9, adult
CPT/HCPCS: 36415; 70450; 70553; 71046; 80048; 80053; 81003; 82947; 85025; 93005; 97110-GO; 97110-GP; 97116-GP; 97530-GO; 97530-GP; 97535-GO; A9270-GY; A9579; J1815-GY; J8540